=== PATIENT | male | born 1955 | race Caucasian/White ===

== ENCOUNTER 2017-03-29 21:12 | Emergency (ER) | payer BC ==
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
[2017-03-29 22:02] LABS: Hematocrit 38 % (42-52); Hemoglobin 13.4 g/dl (14.0-18.0); Mean Corpuscular HGB Conc 35 g/dl (31-36); Mean Corpuscular Hemoglobin 31 pg (27-31); Mean Corpuscular Volume 90 fL (80-94); Mean Platelet Volume 10 um3 (7.4-10.4); Red Blood Count 4.26 10^6/ul (4.0-5.4); Red Cell Distribution Width 13 % (10.5-15); White Blood Count 10.4 10^3/ul (3.5-10.8)
--- NOTE | 2017-03-29 22:11 | RAD ---
HISTORY: Headache, visual disturbance COMPARISONS: May 03, 2013 TECHNIQUE: Multiple contiguous axial CT scans were obtained of the head without intravenous contrast. FINDINGS: HEMORRHAGE/INFARCT: There is no hemorrhage or acute infarct. MASSES/SHIFT: There is no mass or shift. EXTRA-AXIAL SPACES: There are no extra-axial fluid collections. SULCI AND VENTRICLES: The sulci and ventricles are normal in size and position for the patient's stated age. CEREBRUM: There are no focal parenchymal abnormalities. BRAINSTEM: There are no focal parenchymal abnormalities. CEREBELLUM: There are no focal parenchymal abnormalities. VESSELS: The vessels are grossly normal. PARANASAL SINUSES: The paranasal sinuses are clear. ORBITS: The orbits are unremarkable. BONES AND SOFT TISSUE: No bone or soft tissue abnormalities are noted. OTHER: None IMPRESSION: NO ACUTE INTRACRANIAL PATHOLOGY.
[2017-03-29 22:16] LABS: Albumin 4.5 g/dL (3.2-5.2); BUN/Creatinine Ratio 26.2 (8-20); Calcium 9.8 mg/dL (8.6-10.3); EGFR African American 93.8 (>60); EGFR Non-African American 72.9 (>60); Globulin 2.7 g/dL (2-4); Potassium 3.5 mmol/L (3.5-5.0); Total Bilirubin 0.6 mg/dL (0.2-1.0); Total Protein 7.2 g/dL (6.4-8.9)
[2017-03-29] MEDS ORDERED: Acetaminophen TAB* 325 MG PO ONE (23:57)
[2017-03-30 00:18] VITALS: BP 117/52
== END 2017-03-30 00:19 | disposition home or self-care (01) ==
LOC: ED 21:12
DX: S06.9X9A Unspecified intracranial injury with loss of consciousness of unspecified duration, initial encounter (principal); S93.402A Sprain of unspecified ligament of left ankle, initial encounter; S16.1XXA Strain of muscle, fascia and tendon at neck level, initial encounter; S39.012A Strain of muscle, fascia and tendon of lower back, initial encounter; S80.02XA Contusion of left knee, initial encounter; W01.198A Fall on same level from slipping, tripping and stumbling with subsequent striking against other object, initial encounter; Y93.H9 Activity, other involving exterior property and land maintenance, building and construction; Y92.007 Garden or yard of unspecified non-institutional (private) residence as the place of occurrence of the external cause; M17.12 Unilateral primary osteoarthritis, left knee; M50.30 Other cervical disc degeneration, unspecified cervical region; R11.2 Nausea with vomiting, unspecified; F41.9 Anxiety disorder, unspecified; Z88.5 Allergy status to narcotic agent
CPT/HCPCS: 36415; 70450; 80053; 85025; 85610; 93005; 96374; 96375; 99283; A9270-GY

== ENCOUNTER 2017-12-25 20:01 | Emergency (ER) | payer BC ==
--- OUTSIDE RECORDS SUMMARY | 2017-12-25 20:28 | XMS REPORT ---
:1955 External Reference #:[id number] Author Organization [facility] Address [address] [place] [address] Phone [phone] Care Team Providers Name Role Phone Kanu George MD Care Team Information Collision Estimator Unavailable Kanu George MD Primary Care Physician Unavailable Payers Type Date Identification Numbers Payment Provider Subscriber Commercial Effective: Policy Number: [id number] [facility] Jose Mcelroy 2017 PayID: [id number] [address] [address] [place] [address] Medigap Part B Effective: 2012 Policy Number: BC/BS Of SINDY Mcelroy [id number] Expires: 2017 PayID: [id number] [address] [place] [id number] Problems Date Description Provider Status Onset: 08/20/2010 Gastroesophageal reflux disease Andreina Parr M.D. Active Onset: 08/20/2010 Essential hypertension Andreina Parr M.D. Active Onset: 10/27/2011 Cellulitis and abscess of face Wendy Ayala M.D. Active Onset: 10/27/2011 Arthralgia of the lower leg Wendy Ayala M.D. Active Onset: 11/01/2011 Malaise and fatigue Lorena Baez M.D. Active Onset: 09/01/2012 Type II diabetes mellitus Trish Donahue Active uncontrolled Onset: 05/08/2013 Open wound of face Kanu George M.D. Active Onset: 09/25/2013 Acquired trigger finger Kanu George M.D. Active Onset: 11/19/2013 Hand joint pain Kanu George M.D. Active Onset: 12/26/2013 Palpitations Kanu George M.D. Active Onset: 01/16/2014 Atrial fibrillation Kanu George M.D. Active Onset: 09/23/2014 Disorder of shoulder Kanu George M.D. Active Onset: 09/23/2014 Wrist joint pain Kanu George M.D. Active Onset: 09/23/2014 Benign essential hypertension Kanu George M.D. Active Onset: 02/08/2015 Acute upper respiratory infection Edwin Aldridge M.D. Active Onset: 02/08/2015 Disorder of skin AND/OR Edwin Aldridge M.D. Active subcutaneous tissue Onset: 07/05/2016 Low back pain Kanu George M.D. Active Onset: 06/24/2017 Transient cerebral ischemia Kanu George M.D. Active Family History Date Family Member(s) Problem(s) Comments Father CHF, stroke 1993 , r sided paraplegia Mother 82, d/t sequelae from a fall. MIx several. 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 Cigarette Use Never Smoked Cigarettes ETOH Use Rarely consumes alcohol Smoking Patient has never smoked Daily Caffeine Consumes on average 2 cups of coffee per day Daily Caffeine Consumes on average 2 sodas per day Sun Exposure Minimum amount of sun exposure Seat Belt/Car Seat Always uses a seat belt Allergies, Adverse Reactions, Alerts Date Description Reaction Status Severity Comments 01/29/2002 Amoxicillin active Hives, Joint Pain 11/15/2003 Penicillin active Medications Medication Date Status Form Strength Qnty SIG Indications Ordering Provider Aspirin Ec 12/05 Active Tablets 325mg 1 by mouth every day Trish Baer Simvastatin 11/10 Active Tablets 10mg 30tab take one E78.4 Kanu Kwan /Luis Enrique s tablet by edna George M.D. every day in the evening Lancets Ultra 08/18 Active Misc Thin 30G 1Boxe test 1 E11.65 Lara Thin 30G /2011 s time daily Dante, qd dx: Afnp-C niddm Freestyle 08/18 Active Strips 1box test qd E11.65 Lara Insulinx Blood /2011 NIDDM Dante, Glucose Test Afnp-C Metformin HCL 08/18 Active Tablets 500mg 60tab take 1 E11.65 Kanu Kwan /2011 s tablet by Ariel mouth M.D. twice a day with food Montelukast 07/06 Active Tablets 10mg 30tab Take 1 Kanu Ortiz s Tablet By Breervin, Mouth Once M.D. Daily Omeprazole 08/20 Active Capsules 40mg 30cap take 1 K21.9 Kanu Kwan /2009 s capsule by Ariel, mouth once M.D. daily Ramipril 09/23 Active Capsules 2.5mg 30cap take 1 I10 Kanu Kwan /2007 s capsule by Ariel, mouth once M.D. daily Hydrochlorothiazi 01/14 Active Tablets 25mg 30tab take 1 I10 Kanu flanagan s tablet by Breimabela, mouth once M.D. daily Multivitamins 00 Active Tablets 1 po qd Unknown /0000 Aspirin Adult Low 06/24 Hx Chewtabs 81mg 100un 1 by mouth Kanu Garcia /Artem its every day Michael George.DNikhil 12/05 Oxycodone-Acetami 03/18 Hx Tablets 5-325mg 50tab take 1 -2 Kanu harris /2016 s Q 4Hour Ariel, - prn Pain M.D. 06/24 Doxycycline 03/15 Hx Capsules 100mg 20cap 1 by mouth Alanna Hyclate /2016 s twice a Buffy, - day Afnp-C 03/25 Tramadol HCL 03/15 Hx Tablets 50mg 30tab 1-2 by Mansoor.Tracey Mondragon /2016 s mouth Buffy, - every 6 Afnp-C 06/24 hours needed for pain Tramadol HCL 12/02 Hx Tablets 50mg 30tab 1-2 by Alanna /2015 s mouth Buffy, - every 6 Afnp-C 07/05 hours needed Ibuprofen 07/08 Hx Tablets 200mg 600 mg po Kanu Kwan /2014 qam Michael George M.D. 03/14 Gentamicin 05/17 Hx Solution 0.3% 1Bott 1-2 drops Edwin T. le four times Midura, - a day M.D. 07/08 affected eye until clear Azithromycin 02/08 Hx Tablets 250mg 6tabs 2 by mouth 465.9 Edwin Colin /2014 today and Midura, - 1 by mouth M.D. 05/17 x 4 days Aleve 09/23 Hx Tablets 220mg 1 by mouth Kanu Kwan /2013 twice a Ariel, - day M.D. 07/08 Naprosyn 12/17 Hx Tablets 375mg 30tab 1 po bid Kanu Kwan /2013 s with Ariel - meals M.D. 12/26 Meloxicam 11/28 Hx Tablets 15mg 30tab 1 po qd Kanu Kwan s Michael George M.D. 12/26 Celebrex 11/25 Hx Capsules 200mg 30cap 1 po qd Kanu Kwan s Michael George M.D. 11/28 Physical Therapy 05/18 Hx Physical Edwin Colin therapy Oly, - evaluation M.DNikhil 11/19 and treatment of bilateral hands and wrists. dx:e819.3 Oxycodone/Acetami 05/08 Hx Tablets 5-325mg 70tab 1-2 po q 6 Kanu harris s hours prn Ariel, - dt M.D. 11/19 Doxycycline 10/[address] 100mg 14cap 1 po bid 682.0 Wendy Castellanosate /2011 Part s for 7 , - days, take M.D. 12/08 probiotic such as Align or Culturelle Levaquin 10/04 Hx Tablets 750mg 10tab one po 461.9 Gladys s daily for Maci, - 10 days SET DECORATOR 10/27 Doxycycline 06/[address] 100mg 14cap 1 po bid 682.0 Wendy Castellanosate Part s for 7 days Lucy - M.D. 10/04 Levaquin 03/16 Hx Tablets 750mg 10tab one po Celi s daily for jessica Tamez, - 10 days M.D. 06/19 Levaquin 10/05 Hx Tablets 750mg 14tab 1 po daily 682.0 Kanu Kwan s x 14 days. Ariel, - M.DNikhil 03/16 Ramipril 08/20 Hx Capsules 5mg 30cap 1 po daily 401.9 Andreina Frausto s Keshav - Rama 08/20 Levaquin 07/18 Hx Tablets 750mg 4tabs one po 682.0 daily for Dante, - 4 days Afnp-C 07/22 Levaquin 07/09 Hx Tablets 750mg 10tab 1 qd x 10d 682.0 s Maci, - SET DECORATOR 07/18 Note For Work 12/22 Hx pt was seen in [facility], - this Afnp-C 12/23 office and released for work return 12/18/09 Levaquin 12/15 Hx Tablets 750mg 5tabs 1 po qd x 486 5d [facility], - Afnp-C 12/20 Proventil HFA 12/15 Hx 1unit 2 puffs q 486 s 4hrs prn Buffy, - cough/ sob Afnp-C 12/29 Note No Work 12/15 Hx seen in 486 this [facility], - office, Afnp-C 12/17 advise off work through 12/16/09, will returm 12/17/09 Levaquin 09/26 Hx Tablets 750mg 10tab one po 682.0 s daily for Dante, - 10 days Afnp-C 10/06 Return To Work 08/01 Hx pt february return to jessica [employer], - work 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 07/18 pain and sciatic pain Percocet 07/24 Hx Tablets 5-325mg 120ta 1-2 po q6h bs prn jessica Tamez, - M.DNikhil 07/18 Flexeril 07/24 Hx Tablets 10mg 30tab 1 by mouth Kanu Aniya s three Ariel, - times a M.D. 07/05 day needed back pain Ibuprofen 07/24 Hx Tablets 800mg 90tab 1 po q8 s hours tid jessica Tamez, - with food M.D. 07/18 Out Of Work 07/24 Hx pt to be out of jessica Tamez, - work from M.D. 09/2607/24/09 to 07/31/09 Ramipril 09/23 Hx Caps 2.5mg 30cap Take s Capsule By - Mouth Once 02/12 Daily Work Excuse 03/12 Hx Unable To Kanu Kwan Work For Ariel, - The Next M.D. 01/20 2-3 Will Be Reevaluate d During That Time Medrol Dosepak 02/26 Hx Tablets 4mg 1tabs use as Kanu Kwan /2007 directed Michael George.Cordelia 01/20 Percocet 02/26 Hx Tablets 10-325mg 300ta use 1-2 Kanu Kwan /2007 bs po 4-6qhr Michael George M.D. 07/24 Work Excuse 02/26 Hx unable to Kanu Kwan work for [employer], - at least 2 M.D. 01/20 more weeks Physical Therapy 02/21 Hx Evaluate Gladys And Treat Maci, - Upper SET DECORATOR 01/20 Thoracic /2008 And Cervical Strain Soma 02/20 Hx Tablets 350mg 40tab 1 PO qid 848.9 Gladys s prn Muscle Maci, - Spasm SET DECORATOR 03/27 Soma 02/18 Hx Tablets 250mg 40tab 1 po qid 848.9 Gladys s prn muscle Maci, - spasm SET DECORATOR 02/20 Hydrocodone/Aceta 02/18 Hx Tablets 7.5-325 40tab 2 po bid 848.9 Gladys min s prn for Maci, - pain SET DECORATOR 02/26 Note No Work 02/18 Hx wale was seen by me Maci, - today and SET DECORATOR 01/20 return to work until tuesday, 5\\14\\08 Omeprazole 02/15 Hx CPDR 20mg 30uni take 1 Nikhil ts capsule by Ariel - mouth once M.D. 10/30 Biaxin 11/03 Hx Tablets 500mg 20tab 1 PO bid 461.9 s X10 Days Maci, - SET DECORATOR 02/14 Robitussin ac 11/03 Hx 4Oz 1-2 TSP PO 461.9 Q4H prn Maci, - Cough SET DECORATOR 02/14 Physical Therapy 01/30 Hx treatment Kanu Kwan /2006 and Ariel - jessie M.Cordelia 11/03 low back pain Levaquin 01/18 Hx Tablets 500mg 10tab 1 PO qd Kanu Kwan /2006 s Michael George M.D. 07/11 Keflex 07/06 Hx Tablets 500mg 21tab 1 PO tid Gerald JNikhil /2005 s For 7D Michael Keyes M.D. 07/13 Biaxin 07/30 Hx Tablets 500mg 20tab 1 PO bid X s 10 Days Maci, - ANNE 09/22 Anusol HC 03/29 Hx Cream 2.5% 30gm apply bid Kanu Kwan Michael George M.D. 07/30 Coumadin 01/18 Hx 5mg [facility] 07/30 [facility] [place] Biaxin 11/18 Hx 500mg 20uni 1 po bid Kanu Kwan ts x10 days Michael George M.D. 05/18 Altace 10/28 Hx Capsules 2.5mg 30cap 1 po qd Kanu Kwan Michael Leon M.D. 01/20 Hydrochlorothiazi 10/07 Hx 25mg 30uni 1 po qd Kanu flanagan Michael Lloyd M.D. 02/14 Hydrochlorothiazi 09/16 Hx 12.5 30uni 1 po q.d Kanu flanagan Michael Lloyd M.D. 10/07 Prilosec 09/16 Hx 20mg 30uni 1 po qd Kanu JNikhil Michael Lloyd M.D. 02/26 Levaquin 07/20 Hx 500mg 10uni 1 qd librado Lux - SET DECORATOR 09/03 Nexium 07/20 Hx 40mg 30uni 1 qd Kanu JNikhil Michael Lloyd M.D. 10/07 Levaquin 06/05 Hx 500mg 14uni 1 qd librado Lux - SET DECORATOR 07/20 Biaxin 05/27 Hx 250mg 20uni 1 po bid librado Lux - SET DECORATOR 06/05 Humibid LA 05/27 Hx 60uni 1 bid Kanu Kwan Michael Lloyd M.D. 10/28 Singulair 05/27 Hx Tablets 10mg 30tab Take 1 Kanu JNikhil s Tablet By Ariel, - Mouth Once M.DNikhil 08/09 Biaxin 11/27 Hx Tabs 500mg 20tab 1 po bid Edwin T. Michael Knight M.D. 05/27 Aciphex 11/15 Hx 20mg 30uni 1 po qd librado Lux - SET DECORATOR 07/20 Levaquin 11/15 Hx 500mg 14uni 1 qd x 14 librado Howell - Afnp-C 11/27 Levaquin 08/03 Hx 500mg 7unit 1 qd jann Lux - SET DECORATOR 11/15 Levaquin 07/22 Hx 750mg 14uni 1 qd [facility] 08/03 [facility] [place] Levaquin 06/25 Hx 500mg 3unit 1 qd Alanna jann Baer - Afnp-C 07/02 Aciphex 11/21 Hx 20mg 30uni 1 PO qd Kanu JNikhil Michael Lloyd M.D. 11/15 Acitlex 11/02 Hx 30uni 1 PO qd Kanu JNikhil Michael Lloyd M.D. 11/21 Medrol Dosepack 01/29 Hx 4mg 1unit as Parveen F. s Directed Temo - Rama 02/05 Sally 01/29 Hx 180mg 30uni 1 PO qd . librado George - Demi.DNikhil 05/27 Humabid LA 01/15 Hx 600mg 30uni 1-2 Q 12 Edwin T. ts HR prn Oly, - M.D. 01/29 Amoxicillin 01/15 Hx Tablets 500mg 30tab 1 Tablet 3 Edwin T. s Times Oly, - Daily M.D. 01/29 Vioxx 09/21 Hx 50mg 1 PO qd [facility] 01/15 Of Hydrocodone/Apap 09/21 Hx Tabs 5/500 1-2 PO [id number] Medicine - prn [facility] 01/15 Of Amoxicillin 09/21 Hx Tablets 500mg 30tab 1 Tablet 3 Avila S. s Faby Peralta M.D. - Daily 10/01 Humabid LA 09/21 Hx 600mg 15uni 1-2 Q 12 Avila S. ts HR prn Rama Peralta - 10/11 Physical Therapy 07/26 Hx Treatment . And Oly, - Evaluation M.D. 01/15 Shoulder Pain Medrol 07/26 Hx Dose Pack 1unit as Edwin T. s Directed Oly, - M.D. 01/15 Motrin 07/26 Hx 800mg 90uni 1 PO tid Edwin T. ts prn Oly, - M.D. 01/15 Compazine 06/12 Hx 5mg 30uni 1-2 Tabs Q Edwin T. ts 6-8 HRS Oly, - For M.D. 01/15 Nausea/Vom iting Fiorinal 06/12 Hx 30uni 1-2 Q 4 Edwin T. W/Codeine ts HRS prn Oly, - Headache M.D. 01/15 Tylenol #3 06/09 Hx #3 40uni 1 PO Q4H Mahad Cameron ts prn Theron - Rama 07/09 Pain Soma 06/09 Hx 350mg 30uni 1 PO qid Mahad Cameron ts prn Theron - RakeshDNikhil 06/19 Naproxen 04/24 Hx 375mg Tab 30uni 1 PO tid Mahad Cameron ts prn Neck Blclinton, - Pain M.D. 05/24 1 Physical Therapy 01/24 Hx Treatment Kanu J. And Ariel - Evaluation Demi.DNikhil 03/03 Of Neck And Shoulder Pain Tylenol #3 01/24 Hx #3 20uni 1 PO Q4H Lara ts prn Pain Dante, - Afnp-C 01/24 Soma 01/24 Hx 350mg 30uni 1 PO qid Lara ts prn Dante, - Afnp-C 03/03 Soma CPD 01/17 Hx 300 30uni 1 qid Kanu J. ts Michael George M.D. 03/03 Tylenol #3 01/17 Hx #3 20uni 1 PO Q4H ts prn Pain Dante, - Afnp-C 03/03 Keflex 07/02 Hx 5Oomg 30uni 1 PO tid Edwin Colin ts Michael Aldridge M.D. 03/03 Amoxicillin 12/06 Hx 250mg Tab 30uni 1 PO tid Mahad Cameron Michael Rice M.D. 12/16 Ibuprofen Hx Tablets 600mg 60tab 1 PO tid Unknown /0000 s With Food - prn For 01/20 Pain /2008 Ibuprofen Hx Capsules 200mg take one Unknown /0000 capsule - with 11/03 breakfast and dinner for 5 days Flexeril 00 Hx Unknown /0000 - 08/18 Cyclobenzaprine Hx Tablets 10mg 20tab take 1 Unknown HCL /0000 s tablet by - mouth tid 11/03 evening if needed for muscle spasm Aleve Hx Capsules 220mg Unknown /0000 - 05/29 /2017 Immunizations CPT Code Status Date Vaccine Lot # [id number] Given 06/24/2017 Influenza Vac, Quadrivalent, Slit Virus, Im [id number] Given 07/08/2015 Influenza Vac, Quadrivalent, Slit Virus, Im [id number] Given 09/23/2014 Influenza Vac, Quadrivalent, Slit Virus, Im [id number] Given 11/19/2013 Preservative free flu 3 yrs+ and older [id number] Given 11/03/2012 DO Not Use Split Influenza Virus Vaccine [id number] Given 10/30/2010 Tdap Tetanus, W Pertussis [id number] Vital Signs Date Vital Result Comment 12/05/2017 BP Systolic 122 mmHg BP Diastolic 76 mmHg Heart Rate 72 /min Body Temperature 97.0 F Respiratory Rate 16 /min Height 67 inches 5'7" Weight 198.00 lb BMI (Body Mass Index) 31.0 kg/m2 Right Visual Acuity Distance 20/25 No Lenses Left Visual Acuity Distance 20/25 No Lenses 06/24/2017 BP Systolic 122 mmHg BP Diastolic 80 mmHg Heart Rate 76 /min Body Temperature 97.7 F Respiratory Rate 16 /min Height 67 inches 5'7" Weight 196.25 lb BMI (Body Mass Index) 30.7 kg/m2 04/04/2017 BP Systolic 120 mmHg BP Diastolic 66 mmHg Heart Rate 68 /min Body Temperature 98.0 F Respiratory Rate 18 /min Height 67 inches 5'7" Weight 196.00 lb BMI (Body Mass Index) 30.7 kg/m2 03/18/2017 BP Systolic 120 mmHg BP Diastolic 68 mmHg Heart Rate 68 /min Body Temperature 98.1 F Respiratory Rate 18 /min Height 67 inches 5'7" Weight 197.12 lb BMI (Body Mass Index) 30.9 kg/m2 03/15/2017 BP Systolic 120 mmHg BP Diastolic 66 mmHg Heart Rate 84 /min Body Temperature 97.5 F Height 67 inches 5'7" Weight 199.25 lb pt stated BMI (Body Mass Index) 31.2 kg/m2 12/21/2016 BP Systolic 124 mmHg BP Diastolic 78 mmHg Heart Rate 68 /min Body Temperature 97.7 F Respiratory Rate 16 /min Height 67 inches 5'7" Weight 224.12 lb BMI (Body Mass Index) 35.1 kg/m2 Right Visual Acuity Distance 20/20 Left Visual Acuity Distance 20/25 07/05/2016 BP Systolic 122 mmHg BP Diastolic 80 mmHg Heart Rate 62 /min Body Temperature 98.1 F Respiratory Rate 20 /min Height 66.5 inches 5'6.50" Weight 229.00 lb BMI (Body Mass Index) 36.4 kg/m2 04/24/2016 BP Systolic 154 mmHg BP Diastolic 90 mmHg Heart Rate 80 /min Body Temperature 97.9 F Respiratory Rate 18 /min Height 66.5 inches 5'6.50" Weight 239.00 lb BMI (Body Mass Index) 38.0 kg/m2 12/22/2015 BP Systolic 120 mmHg BP Diastolic 80 mmHg Heart Rate 68 /min Body Temperature 98.1 F Respiratory Rate 18 /min Height 66.5 inches 5'6.50" Weight 233.00 lb BMI (Body Mass Index) 37.0 kg/m2 Right Visual Acuity Distance 20/20 Left Visual Acuity Distance 20/25 12/02/2015 BP Systolic 162 mmHg BP Diastolic 100 mmHg Heart Rate 68 /min Body Temperature 98.7 F Height 66.5 inches 5'6.50" 07/08/2015 BP Systolic 130 mmHg BP Diastolic 74 mmHg Heart Rate 64 /min Body Temperature 98.6 F Respiratory Rate 18 /min Height 66.5 inches 5'6.50" Weight 233.00 lb BMI (Body Mass Index) 37.0 kg/m2 02/08/2015 BP Systolic 160 mmHg BP Diastolic 88 mmHg Heart Rate 78 /min Body Temperature 98.6 F Respiratory Rate 16 /min Height 67 inches 5'7" measured 01/02/15 Weight 232.00 lb stated 02/08/15 BMI (Body Mass Index) 36.3 kg/m2 01/02/2015 BP Systolic 130 mmHg BP Diastolic 80 mmHg Heart Rate 84 /min Body Temperature 98.0 F Respiratory Rate 16 /min Height 67 inches 5'7" measured 01/02/15 Weight 239.38 lb BMI (Body Mass Index) 37.5 kg/m2 Right Visual Acuity Distance 20/20 Left Visual Acuity Distance 20/25 09/23/2014 BP Systolic 130 mmHg BP Diastolic 74 mmHg Heart Rate 70 /min Body Temperature 98.2 F Respiratory Rate 16 /min Height 66.5 inches 5'6.50" Weight 228.00 lb BMI (Body Mass Index) 36.2 kg/m2 01/16/2014 BP Systolic 110 mmHg BP Diastolic 70 mmHg Heart Rate 05089 /min Body Temperature 98.1 F Height 66.5 inches 5'6.50" Weight 225.00 lb BMI (Body Mass Index) 35.8 kg/m2 01/01/2014 BP Systolic 124 mmHg BP Diastolic 80 mmHg Heart Rate 72 /min Body Temperature 97.2 F Respiratory Rate 16 /min Height 66.5 inches 5'6.50" Weight 228.00 lb BMI (Body Mass Index) 36.2 kg/m2 Right Visual Acuity Distance 20/20 Left Visual Acuity Distance 20/20 12/26/2013 BP Systolic 130 mmHg BP Diastolic 80 mmHg Heart Rate 74 /min Body Temperature 98.0 F Respiratory Rate 16 /min Height 66.5 inches 5'6.50" Weight 232.00 lb BMI (Body Mass Index) 36.9 kg/m2 11/19/2013 BP Systolic 124 mmHg BP Diastolic 70 mmHg Heart Rate 66 /min Body Temperature 97.8 F Respiratory Rate 18 /min Height 66.5 inches 5'6.50" measured Weight 224.00 lb BMI (Body Mass Index) 35.6 kg/m2 09/25/2013 BP Systolic 138 mmHg BP Diastolic 90 mmHg Heart Rate 78 /min Body Temperature 98.0 F Respiratory Rate 18 /min Height 66.5 inches 5'6.50" measured Weight 220.00 lb BMI (Body Mass Index) 35.0 kg/m2 05/11/2013 BP Systolic 140 mmHg BP Diastolic 90 mmHg Heart Rate 78 /min Body Temperature 98.7 F Respiratory Rate 16 /min O2 % BldC Oximetry 98 % Height 66.5 inches 5'6.50" measured Weight 213.00 lb BMI (Body Mass Index) 33.9 kg/m2 05/08/2013 BP Systolic 132 mmHg BP Diastolic 80 mmHg Heart Rate 78 /min Body Temperature 97.9 F Respiratory Rate 18 /min Height 66.5 inches 5'6.50" measured Weight 217.00 lb BMI (Body Mass Index) 34.5 kg/m2 02/06/2013 BP Systolic 136 mmHg BP Diastolic 80 mmHg Heart Rate 80 /min Body Temperature 97.9 F Height 66.5 inches 5'6.50" measured Weight 220.00 lb BMI (Body Mass Index) 35.0 kg/m2 12/25/2012 BP Systolic 146 mmHg BP Diastolic 88 mmHg BP Systolic Recheck 140 mmHg BP Diastolic Recheck 84 mmHg Heart Rate 78 /min Body Temperature 99.0 F Respiratory Rate 18 /min Height 66.5 inches 5'6.50" measured Weight 230.25 lb BMI (Body Mass Index) 36.6 kg/m2 Right Visual Acuity Distance 20/20 Left Visual Acuity Distance 20/30 11/03/2012 BP Systolic 130 mmHg BP Diastolic 84 mmHg Heart Rate 80 /min Body Temperature 97.6 F Height 67.5 inches 5'7.50" Weight 224.00 lb BMI (Body Mass Index) 34.6 kg/m2 09/01/2012 BP Systolic 124 mmHg BP Diastolic 70 mmHg Heart Rate 80 /min Height 67.5 inches 5'7.50" Weight 246.00 lb BMI (Body Mass Index) 38.0 kg/m2 08/18/2012 BP Systolic 136 mmHg BP Diastolic 78 mmHg Heart Rate 122 /min Body Temperature 98.1 F Height 67.5 inches 5'7.50" Weight 246.00 lb BMI (Body Mass Index) 38.0 kg/m2 08/09/2012 BP Systolic 132 mmHg BP Diastolic 80 mmHg Heart Rate 64 /min Body Temperature 97.8 F Respiratory Rate 16 /min Height 67.5 inches 5'7.50" Weight 243.00 lb BMI (Body Mass Index) 37.5 kg/m2 12/08/2011 BP Systolic 130 mmHg BP Diastolic 80 mmHg Heart Rate 76 /min Body Temperature 98.9 F Respiratory Rate 14 /min Height 67.5 inches 5'7.50" Weight 244.00 lb BMI (Body Mass Index) 37.6 kg/m2 Right Visual Acuity Distance 20/20 Left Visual Acuity Distance 20/20 11/01/2011 BP Systolic 130 mmHg BP Diastolic 84 mmHg Heart Rate 84 /min Body Temperature 98.1 F Height 67.5 inches 5'7.50" Weight 249.00 lb BMI (Body Mass Index) 38.4 kg/m2 10/27/2011 BP Systolic 134 mmHg BP Diastolic 76 mmHg Heart Rate 102 /min Body Temperature 98.4 F Height 67.5 inches 5'7.50" Weight 246.00 lb BMI (Body Mass Index) 38.0 kg/m2 10/04/2011 BP Systolic 140 mmHg BP Diastolic 74 mmHg Heart Rate 80 /min Body Temperature 98.4 F Height 67.5 inches 5'7.50" Weight 245.00 lb BMI (Body Mass Index) 37.8 kg/m2 06/19/2011 BP Systolic 116 mmHg BP Diastolic 68 mmHg Heart Rate 76 /min Body Temperature 98.8 F Height 67.5 inches 5'7.50" Weight 256.00 lb BMI (Body Mass Index) 39.5 kg/m2 03/16/2011 BP Systolic 130 mmHg BP Diastolic 80 mmHg Heart Rate 76 /min Body Temperature 98.8 F Height 67.5 inches 5'7.50" Weight 246.00 lb BMI (Body Mass Index) 38.0 kg/m2 10/30/2010 BP Systolic 120 mmHg BP Diastolic 70 mmHg Heart Rate 72 /min Height 67.5 inches 5'7.50" Weight 246.00 lb BMI (Body Mass Index) 38.0 kg/m2 10/05/2010 BP Systolic 120 mmHg BP Diastolic 70 mmHg Heart Rate 60 /min Body Temperature 99.0 F Height 67.5 inches 5'7.50" Weight 248.00 lb BMI (Body Mass Index) 38.3 kg/m2 08/20/2010 BP Systolic 140 mmHg BP Diastolic 82 mmHg Heart Rate 84 /min Height 67.5 inches 5'7.50" Weight 250.00 lb BMI (Body Mass Index) 38.6 kg/m2 07/24/2010 BP Systolic 128 mmHg BP Diastolic 76 mmHg Heart Rate 80 /min Body Temperature 98.4 F Respiratory Rate 14 /min Height 67.5 inches 5'7.50" Weight 245.00 lb BMI (Body Mass Index) 37.8 kg/m2 07/18/2010 BP Systolic 114 mmHg BP Diastolic 68 mmHg Heart Rate 96 /min Body Temperature 97.5 F Respiratory Rate 24 /min Height 67.5 inches 5'7.50" Weight 245.00 lb BMI (Body Mass Index) 37.8 kg/m2 07/09/2010 BP Systolic 120 mmHg BP Diastolic 68 mmHg Heart Rate 88 /min Body Temperature 97.9 F Height 67.5 inches 5'7.50" Weight 245.00 lb BMI (Body Mass Index) 37.8 kg/m2 12/15/2009 BP Systolic 138 mmHg BP Diastolic 70 mmHg Heart Rate 94 /min Body Temperature 96.2 F Weight 238.00 lb 10/01/2009 BP Systolic 120 mmHg BP Diastolic 70 mmHg Heart Rate 60 /min Body Temperature 98.2 F Weight 233.00 lb 09/26/2009 BP Systolic 102 mmHg BP Diastolic 70 mmHg Heart Rate 80 /min Body Temperature 98.2 F Height 67.5 inches 5'7.50" 08/01/2009 BP Systolic 120 mmHg BP Diastolic 70 mmHg Heart Rate 80 /min Body Temperature 98.0 F Height 67.5 inches 5'7.50" Weight 232.00 lb BMI (Body Mass Index) 35.8 kg/m2 07/24/2009 BP Systolic 146 mmHg BP Diastolic 80 mmHg Heart Rate 72 /min Body Temperature 97.6 F Height 67.5 inches 5'7.50" Weight 230.00 lb BMI (Body Mass Index) 35.5 kg/m2 01/20/2009 BP Systolic 122 mmHg BP Diastolic 74 mmHg Heart Rate 80 /min Height 67.5 inches 5'7.50" Weight 232.00 lb BMI (Body Mass Index) 35.8 kg/m2 03/27/2008 BP Systolic 120 mmHg BP Diastolic 68 mmHg Heart Rate 80 /min Height 67.5 inches 5'7.50" Weight 248.00 lb BMI (Body Mass Index) 38.3 kg/m2 03/12/2008 BP Systolic 118 mmHg BP Diastolic 70 mmHg Heart Rate 88 /min Height 67.5 inches 5'7.50" Weight 257.00 lb BMI (Body Mass Index) 39.7 kg/m2 02/27/2008 BP Systolic 108 mmHg BP Diastolic 70 mmHg Heart Rate 80 /min Height 67.5 inches 5'7.50" Weight 250.00 lb BMI (Body Mass Index) 38.6 kg/m2 02/19/2008 BP Systolic 110 mmHg BP Diastolic 80 mmHg Heart Rate 80 /min Body Temperature 98.8 F Height 67.5 inches 5'7.50" Weight 251.00 lb BMI (Body Mass Index) 38.7 kg/m2 11/03/2007 BP Systolic 140 mmHg BP Diastolic 88 mmHg Heart Rate 60 /min Body Temperature 97.6 F O2 % BldC Oximetry 97 % Height 67.5 inches 5'7.50" Weight 239.00 lb BMI (Body Mass Index) 36.9 kg/m2 07/11/2007 BP Systolic 144 mmHg BP Diastolic 80 mmHg Heart Rate 80 /min Body Temperature 97.9 F Height 67.5 inches 5'7.50" Weight 241.00 lb BMI (Body Mass Index) 37.2 kg/m2 01/18/2007 BP Systolic 132 mmHg BP Diastolic 76 mmHg Heart Rate 72 /min Height 67.5 inches 5'7.50" Weight 244.00 lb BMI (Body Mass Index) 37.6 kg/m2 07/06/2006 BP Systolic 126 mmHg BP Diastolic 80 mmHg Heart Rate 64 /min Body Temperature 97.9 F Height 67.5 inches 5'7.50" 10/29/2005 BP Systolic 124 mmHg BP Diastolic 80 mmHg Heart Rate 76 /min Height 67.5 inches 5'7.50" Weight 232.00 lb BMI (Body Mass Index) 35.8 kg/m2 09/22/2005 BP Systolic 122 mmHg BP Diastolic 80 mmHg Heart Rate 72 /min Height 67.5 inches 5'7.50" Weight 236.00 lb BMI (Body Mass Index) 36.4 kg/m2 07/30/2005 BP Systolic 122 mmHg BP Diastolic 76 mmHg Body Temperature 99.2 F Height 67.5 inches 5'7.50" Weight 228.00 lb BMI (Body Mass Index) 35.2 kg/m2 03/29/2005 BP Systolic 120 mmHg BP Diastolic 78 mmHg Heart Rate 80 /min Height 67.5 inches 5'7.50" Weight 225.00 lb BMI (Body Mass Index) 34.7 kg/m2 01/18/2005 BP Systolic 130 mmHg BP Diastolic 70 mmHg Heart Rate 72 /min Height 67.5 inches 5'7.50" Weight 224.00 lb BMI (Body Mass Index) 34.6 kg/m2 11/18/2004 BP Systolic 110 mmHg BP Diastolic 70 mmHg Heart Rate 74 /min Height 67.5 inches 5'7.50" Weight 225.00 lb BMI (Body Mass Index) 34.7 kg/m2 10/28/2004 BP Systolic 130 mmHg BP Diastolic 92 mmHg Heart Rate 104 /min Height 67.5 inches 5'7.50" Weight 227.00 lb BMI (Body Mass Index) 35.0 kg/m2 10/07/2004 BP Systolic 150 mmHg BP Diastolic 90 mmHg Heart Rate 88 /min Height 67.5 inches 5'7.50" Weight 223.00 lb BMI (Body Mass Index) 34.4 kg/m2 09/16/2004 BP Systolic 130 mmHg BP Diastolic 70 mmHg Heart Rate 84 /min Height 67.5 inches 5'7.50" Weight 224.00 lb BMI (Body Mass Index) 34.6 kg/m2 07/20/2004 BP Systolic 140 mmHg BP Diastolic 86 mmHg Heart Rate 80 /min Body Temperature 98.6 F Height 67.5 inches 5'7.50" Weight 220.00 lb BMI (Body Mass Index) 33.9 kg/m2 05/27/2004 BP Systolic 130 mmHg BP Diastolic 90 mmHg Heart Rate 80 /min Height 67.5 inches 5'7.50" Weight 226.00 lb BMI (Body Mass Index) 34.9 kg/m2 11/27/2003 BP Systolic 130 mmHg BP Diastolic 76 mmHg Heart Rate 88 /min Body Temperature 96.8 F Height 67.5 inches 5'7.50" Weight 223.00 lb BMI (Body Mass Index) 34.4 kg/m2 11/18/2003 BP Systolic 138 mmHg BP Diastolic 94 mmHg Heart Rate 80 /min Body Temperature 96.5 F Height 67.5 inches 5'7.50" Weight 222.00 lb BMI (Body Mass Index) 34.3 kg/m2 11/15/2003 BP Systolic 154 mmHg BP Diastolic 88 mmHg Heart Rate 74 /min Body Temperature 98.5 F Height 67.5 inches 5'7.50" Weight 218.00 lb BMI (Body Mass Index) 33.6 kg/m2 07/22/2003 BP Systolic 144 mmHg BP Diastolic 80 mmHg Heart Rate 72 /min Body Temperature 97.9 F Height 67.5 inches 5'7.50" Weight 215.00 lb BMI (Body Mass Index) 33.2 kg/m2 06/25/2003 BP Systolic 130 mmHg BP Diastolic 90 mmHg Body Temperature 97.8 F Height 67.5 inches 5'7.50" Weight 214.00 lb BMI (Body Mass Index) 33.0 kg/m2 04/15/2003 BP Systolic 136 mmHg BP Diastolic 92 mmHg Heart Rate 76 /min Body Temperature 96.0 F Height 67.5 inches 5'7.50" Weight 224.00 lb BMI (Body Mass Index) 34.6 kg/m2 11/02/2002 BP Systolic 128 mmHg BP Diastolic 70 mmHg Heart Rate 72 /min Height 67.5 inches 5'7.50" Weight 218.00 lb BMI (Body Mass Index) 34.1 kg/m2 08/06/2002 BP Systolic 140 mmHg BP Diastolic 90 mmHg Heart Rate 80 /min Height 67.5 inches 5'7.50" Weight 219.00 lb BMI (Body Mass Index) 34.3 kg/m2 02/09/2002 BP Systolic 112 mmHg BP Diastolic 60 mmHg Body Temperature 96.9 F Height 67.5 inches 5'7.50" Weight 216.00 lb BMI (Body Mass Index) 33.8 kg/m2 01/29/2002 BP Systolic 122 mmHg BP Diastolic 76 mmHg Height 67.5 inches 5'7.50" Weight 220.00 lb BMI (Body Mass Index) 34.5 kg/m2 01/15/2002 BP Systolic 132 mmHg BP Diastolic 70 mmHg Body Temperature 97.5 F Height 67.5 inches 5'7.50" Weight 216.00 lb BMI (Body Mass Index) 33.8 kg/m2 11/07/2001 BP Systolic 122 mmHg BP Diastolic 80 mmHg Height 67.5 inches 5'7.50" Weight 218.00 lb BMI (Body Mass Index) 34.1 kg/m2 09/21/2001 BP Systolic 122 mmHg BP Diastolic 88 mmHg Heart Rate 100 /min Body Temperature 96.6 F Respiratory Rate 22 /min Height 67.5 inches 5'7.50" Weight 218.00 lb BMI (Body Mass Index) 34.1 kg/m2 07/26/2001 BP Systolic 100 mmHg LG Cuff BP Diastolic 70 mmHg LG Cuff Heart Rate 72 /min Height 67.5 inches 5'7.50" Weight 213.50 lb BMI (Body Mass Index) 33.5 kg/m2 06/12/2001 BP Systolic 120 mmHg BP Diastolic 70 mmHg Heart Rate 80 /min Body Temperature 96.4 F Weight 213.00 lb 06/09/2001 BP Systolic 122 mmHg BP Diastolic 74 mmHg Weight 218.00 lb 04/24/2001 BP Systolic 140 mmHg BP Diastolic 84 mmHg Heart Rate 80 /min Weight 209.00 lb 03/03/2000 BP Systolic 130 mmHg BP Diastolic 90 mmHg Respiratory Rate 96.7 /min Weight 217.00 lb 01/17/1999 BP Systolic 122 mmHg LA LG Cuff BP Diastolic 64 mmHg LA LG Cuff Weight 209.00 lb 07/02/1998 BP Systolic 136 mmHg BP Diastolic 90 mmHg Body Temperature 98.4 F Weight 211.00 lb 12/06/1997 BP Systolic 128 mmHg L Arm LG Cuff BP Diastolic 86 mmHg L Arm LG Cuff Height 68.00 inches 5'8" Weight 210.00 lb 08/02/1997 BP Systolic 118 mmHg BP Diastolic 80 mmHg Height 68.00 inches 5'8" Weight 208.50 lb 208 lbs. 8 ozs. Results Test Date Test Result H/L Range Note Ua - Non Micro (Fma) 12/05/2017 Appearance clear Color yellow Glucose, Urine (Fma/CMC/CTX) neg Bilirubin neg Ketones neg SP Grav 1.010 Blood neg PH 5.5 Protein neg Urobil 0.2 Nitrite neg Leukocytes ([facility]ma/CMC/[facility]) neg Laboratory test finding 12/05/2017 Hemoglobin A1c (Fma) 5.2 % 4.1-5.7 Glucose, Serum (Fma/CMC/CTX) 111 mg/dL High 70-105 Laboratory test finding 06/24/2017 Hemoglobin A1c (Fma) 5.2 % 4.1-5.7 Ua - Non Micro (Fma) 06/24/2017 Appearance clear Color yellow Glucose, Urine ([facility]ma/CMC/CTX) neg Bilirubin neg Ketones neg SP Grav 1.015 Blood neg PH 5.5 Protein neg Urobil 0.2 Nitrite neg Leukocytes ([facility]ma/CMC/[facility]) neg Lyme AB/Western Blot Reflex 03/18/2017 Lyme IgG/IgM Ab <0.91 ISR 0.00- 0.90 1, 2 Lyme Disease Ab, Quant, IgM <0.80 index 0.00-0.79 1, 3 Laboratory test finding 03/18/2017 C-Reactive Protein, Quant 7.0 mg/L High 0.0-4.9 1 Laboratory test finding 03/18/2017 Sedimentation Rate 28mm Lipid Profile 03/15/2017 Cholesterol 159 mg/dL 120-200 Triglycerides 76 mg/dL 30-200 HDL Cholesterol 45 mg/dL 30-70 LDL (Calculated) 99 CALC 0-129 VLDL Cholesterol 15 mg/dL 0-50 HDL Risk Factor 3.5 CALC 0.0-4.4 Laboratory test finding 03/15/2017 HCV Antibody <0.1 s/coratio 0.0- 0.9 4, 5 Laboratory test finding 03/15/2017 Glucose, Serum 126 mg/dL High 70-105 6 CBC Electronic (a) 03/15/2017 WBC 9.3 3.6-9.6 RBC 4.95 3.90-5.70 Hemoglobin (Fma/CMC/CTX) 15.4 g/dL 12.1 - 17.2 Hematocrit (Fma/CMC/CTX) 45.9 % 36.1 - 50.3 Platelets 268 10^3/ul 150-400 Lymph% 16.5 % Low 17.0-48.0 Mixed% 4.0 Neutrophils % 79.5 Mean Corpuscular Vol 93 82.2-97.4 Mean Corpuscular Hemoglobin 31.1 27.6-33.3 Mean Corpuscular Hemo Concen 33.6 32.0-36.0 RDW 13.9 High 11.6-13.7 Mean Platelet Volume 9.0 5.5-11.0 HIV 1/O/2 Ag/AB 03/15/2017 HIV Screen 4th Non Reactive Non Reactive 4 Prelim W/Pratt RFX Generation wRfx Sup Laboratory test 03/15/2017 Hemoglobin A1c (Fma) 5.2 % 4.1-5.7 finding Laboratory test 12/21/2016 Hemoglobin A1c (Fma) 6.9 % High 4.1-5.7 finding Microalb, Random (Fma/CMC/CTX) 5.0 mg/L 0.5-37 Ua - Non Micro (Fma) 12/21/2016 Appearance clear Color yellow Glucose, Urine (Fma/CMC/CTX) neg Bilirubin neg Ketones neg SP Grav <=1.005 Blood neg PH 5.5 Protein neg Urobil 0.2 Nitrite neg Leukocytes ([facility]ma/CMC/[facility]) neg Comprehensive Metabolic Prof 12/21/2016 Sodium 142 mEq/L 134-149 Potassium 4.3 mEq/L 3.6-5.5 Chloride 107 mEq/L 94-112 Carbon Dioxide 25 mEq/L 21-32 Glucose 167 mg/dL High 70-105 7 BUN 23 mg/dL 6-26 Creatinine 0.9 mg/dL 0.6-1.4 BUN/Creat Ratio 25.6 CALC 8.0-36.0 Calcium 9.9 mg/dL 8.6-10.2 Total Protein 8.1 g/dL 6.4-8.3 Albumin 5.2 g/dL 3.8-5.5 Globulin 2.9 g/dL 2.0-4.8 A/G Ratio 1.8 CALC 0.6-2.3 Alk. Phosphatase 75 U/L 22-95 Alt (SGPT) 46 U/L High 7-35 Ast (Sgot) 28 U/L 5-34 Total Bilirubin 0.6 mg/dL 0.2-1.3 GFR Non- >60 ml/min/1.73m^ >=60 GFR >60 ml/min/1.73m^ >=60 Complete Blood Count 12/21/2016 WBC 7.4 x10^3/UL 3.6-9.6 RBC 4.63 x10^6/UL 3.90-5.70 HGB 14.4 g/dL 12.1-17.2 HCT 42 % 36-50 MCV 91.0 fL 82.2-97.4 MCH 31.0 pg 27.6-33.3 MCHC 33.9 g/dL 33.0-35.5 RDW 13.2 % 11.6-13.7 PLT 225 x10^3/UL 150-400 MPV 7.8 fL 7.4-10.4 Gran # 5.0 x10^3/UL 1.5-7.2 Lymph# 2.0 x10^3/UL 0.7-4.9 [place]# 0.4 x10^3/UL 0.1-0.9 Gran % 66.7 % 42.2-75.2 Lymph % 27.8 % 20.5-51.1 [place]% 5.5 % 4-10 Lipid Profile 12/21/2016 Cholesterol 174 mg/dL 120-200 Triglycerides 190 mg/dL 30-200 HDL Cholesterol 45 mg/dL 30-70 LDL (Calculated) 91 CALC 0-129 VLDL Cholesterol 38 mg/dL 0-50 HDL Risk Factor 3.9 CALC 0.0-4.4 Ua - Non Micro (a) 12/22/2015 Appearance CLEAR Color YELLOW Glucose, Urine (a/[facility] [place]/CTX) NEG Bilirubin NEG Ketones NEG SP Grav 1.015 Blood NEG PH 5.5 Protein NEG Urobil 0.2 Nitrite NEG Leukocytes (a/[facility] [place]/[facility]) NEG Laboratory test finding 07/08/2015 Hemoglobin A1c 6.3 % % High 4.1-5.7 (a/[facility] [place],CX) Comprehensive Metabolic 01/09/2015 Sodium 136 mEq/L 134-149 Prof Potassium 3.9 mEq/L 3.6-5.5 Chloride 98 mEq/L 94-112 Carbon Dioxide 26 mEq/L 21-32 Glucose 177 mg/dL High 70-105 8 BUN 16 mg/dL 6-26 Creatinine 0.9 mg/dL 0.6-1.4 BUN/Creat Ratio 17.8 CALC 8.0-36.0 Calcium 9.2 mg/dL 8.6-10.2 Total Protein 6.8 g/dL 6.4-8.3 Albumin 4.6 g/dL 3.8-5.5 Globulin 2.2 g/dL 2.0-4.8 A/G Ratio 2.1 CALC 0.6-2.3 Alk. Phosphatase 70 U/L 22-95 Alt (SGPT) 37 U/L High 7-35 9 Ast (Sgot) 31 U/L 5-34 Total Bilirubin 0.7 mg/dL 0.2-1.3 Lipid Profile 01/09/2015 Cholesterol 161 mg/dL 120-200 Triglycerides 127 mg/dL 30-200 HDL Cholesterol 42 mg/dL 30-70 LDL (Calculated) 94 CALC 0-129 VLDL Cholesterol 25 mg/dL 0-50 HDL Risk Factor 3.8 CALC 0.0-4.4 Laboratory test finding 01/09/2015 TSH 1.99 mIU/L 0.50-6.00 PSA 0.4 ng/mL 0.0-4.0 Complete Blood Count 01/09/2015 WBC 6.9 x10^3/UL 3.6-9.6 RBC 4.66 x10^6/UL 3.90-5.70 HGB 15.4 g/dL 12.1-17.2 HCT 44 % 36-50 MCV 93.0 fL 82.2-97.4 MCH 33.1 pg 27.6-33.3 MCHC 35.4 g/dL 33.0-35.5 RDW 12.3 % 11.6-13.7 PLT 190 x10^3/UL 150-400 MPV 8.4 fL 7.4-10.4 Gran # 5.1 x10^3/UL 1.5-7.2 Lymph# 1.5 x10^3/UL 0.7-4.9 [place]# 0.3 x10^3/UL 0.1-0.9 Gran % 72.6 % 42.2-75.2 Lymph % 22.6 % 20.5-51.1 [place]% 4.8 % 1.7-9.3 Laboratory test finding 01/09/2015 Hemoglobin A1c (Fma/CMC,CX) 6.5 % High 4.1-5.7 Ua - Non Micro (Fma) 01/02/2015 Appearance CLEAR Color YELLOW Glucose, Urine (Fma/CMC/CTX) - Bilirubin - Ketones TRACE SP Grav >=1.030 Blood - PH 5.5 Protein - Urobil 0.2 Nitrite - Leukocytes (a/[facility] [place]/[facility]) - Ua - Non Micro ([facility]) 01/01/2014 Appearance clear Color yellow Glucose neg Bilirubin neg Ketones neg SP Grav 1.020 Blood neg PH 5.5 Protein neg Urobil 0.2 Nitrite neg Leukocytes (Fma/CMC/[facility]) neg Laboratory test finding 12/28/2013 Calcium,Ionized,Serum 5.2 mg/dL 4.5- 5.6 Basic Metabolic Profile 12/26/2013 Sodium 135 mEq/L 134-149 Potassium 3.8 mEq/L 3.6-5.5 Chloride 96 mEq/L 94-112 Carbon Dioxide 26 mEq/L 21-32 Glucose 121 mg/dL High 70-105 10 BUN 20 mg/dL 6-26 Creatinine 1.0 mg/dL 0.6-1.4 BUN/Creat Ratio 20.0 CALC 8.0-36.0 Calcium 11.3 mg/dL High 8.6-10.2 11 Laboratory test finding 12/26/2013 TSH 2.71 mIU/L 0.50-6.00 Free T4 1.06 ng/dL 0.75-1.54 CBC Electronic ([facility]) 12/26/2013 WBC 7.6 3.6-9.6 RBC 4.89 3.90-5.70 Hemoglobin (Fma/CMC/CTX) 15.4 g/dL 12.1 - 17.2 Hematocrit (Fma/CMC/CTX) 45.0 % 36.1 - 50.3 Platelets 198 10^3/ul 150-400 Lymph% 26.4 % 17.0-48.0 Mixed% 6.3 Neutrophils % 67.3 Mean Corpuscular Vol 92 82.2-97.4 Mean Corpuscular Hemoglobin 31.5 27.6-33.3 Mean Corpuscular Hemo Concen 34.2 32.0-36.0 RDW 13.5 11.6-13.7 Mean Platelet Volume 8.7 5.5-11.0 Laboratory test finding 12/26/2013 Sed Rate (a/CMC/[facility]) 11mm Basic Metabolic Profile 09/25/2013 BUN 19 mg/dL 6-26 Calcium 10.2 mg/dL 8.6-10.2 Chloride 95 mEq/L 94-112 Creatinine 0.9 mg/dL 0.6-1.4 Carbon Dioxide 28 mEq/L 21-32 Glucose 102 mg/dL 70-105 Sodium 137 mEq/L 134-149 Potassium 3.7 mEq/L 3.6-5.5 BUN/Creat Ratio 20.9 Calc 8.0-36.0 Lipid Profile 02/06/2013 Cholesterol 132 mg/dL 120-200 HDL 36 mg/dL 30-70 Triglycerides 98 mg/dL 30-200 HDL Risk Factor 3.7 CALC 0.0-4.4 LDL (Calculated) 77 CALC 0-129 VLDL (Calculated) 20 mg/dL 0-50 Laboratory test finding 02/06/2013 Hemoglobin A1c 5.8 % High 4.1-5.7 (a/[facility] [place],CX) Comprehensive Metabolic 02/06/2013 Albumin 5.0 g/dL 3.8-5.5 Prof Alk. Phos. 77 U/L 22-95 Alt (SGPT) 41 U/L High 10-40 12 Ast (Sgot) 30 U/L 5-34 BUN 22 mg/dL 6-26 Calcium 9.9 mg/dL 8.6-10.2 Chloride 100 mEq/L 94-112 Creatinine 0.9 mg/dL 0.6-1.4 Carbon Dioxide 25 mEq/L 21-32 Glucose 131 mg/dL High 70-105 13 Sodium 141 mEq/L 134-149 Total Bilirubin 0.4 mg/dL 0.2-1.3 Total Protein 7.2 g/dL 6.3-8.1 Potassium 4.2 mEq/L 3.6-5.5 Globulin 2.2 g/dL 2.0-4.8 A/G Ratio 2.3 Calc 0.6-2.3 BUN/Creat Ratio 23.3 Calc 8.0-36.0 Ua - Non Micro ([facility]) 12/25/2012 Appearance CLEAR Color YELLOW Glucose NEG Bilirubin NEG Ketones NEG SP Grav 1.020 Blood NEG PH 6.0 Protein NEG Urobil 1.0 Nitrite NEG Leukocytes ([facility] [place]/[facility]) NEG Laboratory test finding 11/03/2012 Hemoglobin A1c 6.1% % High 4.1-5.7 (Fma/CMC,CX) Comprehensive Metabolic 11/03/2012 Albumin 5.5 g/dL 3.8-5.5 Prof Alk. Phos. 100 U/L High 22-95 14 Alt (SGPT) 35 U/L 10-40 Ast (Sgot) 26 U/L 5-34 BUN 21 mg/dL 6-26 Calcium 10.2 mg/dL 8.6-10.2 Chloride 101 mEq/L 94-112 Creatinine 1.0 mg/dL 0.6-1.4 Carbon Dioxide 25 mEq/L 21-32 Glucose 129 mg/dL High 70-105 15 Sodium 137 mEq/L 134-149 Total Bilirubin 0.5 mg/dL 0.2-1.3 Total Protein 8.1 g/dL 6.3-8.1 Potassium 4.4 mEq/L 3.6-5.5 Globulin 2.6 g/dL 2.0-4.8 A/G Ratio 2.1 Calc 0.6-2.3 BUN/Creat Ratio 21.5 Calc 8.0-36.0 Lipid Profile 11/03/2012 Cholesterol 238 mg/dL High 120-200 HDL 34 mg/dL 30-70 Triglycerides 219 mg/dL High 30-200 HDL Risk Factor 7.0 CALC High 0.0-4.4 LDL (Calculated) 160 CALC High 0-129 VLDL (Calculated) 44 mg/dL 0-50 Laboratory test finding 08/09/2012 Hemoglobin A1c (a/[facility] [place],CX) 6.9% % High 4.1-5.7 Glucose, Serum (Fma/CMC/CTX) 175 mg/dL High 70-105 Surgical Pathology 12/28/2011 Surgical Pathology <SEE 16 NOTE> Lipid Profile 12/08/2011 Cholesterol 198 mg/dL 120-200 HDL 37 mg/dL 30-70 Triglycerides 241 mg/dL High 30-200 HDL Risk Factor 5.3 CALC High 0.0-4.0 LDL (Calculated) 112 CALC 0-129 VLDL (Calculated) 48 mg/dL 0-50 Laboratory test finding 12/08/2011 PSA 0.50 ng/mL 0.00-4.00 Ua - Non Micro (Fma) 12/08/2011 Appearance clear Color yellow Glucose, Urine (Fma/CMC/CTX) neg Bilirubin neg Ketones trace SP Grav 1.025 Blood neg PH 6.0 Protein neg Urobil 0.2 Nitrite neg Leukocytes (Fma/CMC/[facility]) neg Comprehensive Metabolic Prof 12/08/2011 Albumin 4.9 g/dL 3.8-5.5 Alk. Phos. 85 U/L 22-95 Alt (SGPT) 42 U/L High 10-40 17 Ast (Sgot) 25 U/L 5-34 BUN 13 mg/dL 6-26 Calcium 10.1 mg/dL 8.6-10.2 Chloride 106 mEq/L 94-112 Creatinine 0.9 mg/dL 0.6-1.4 Carbon Dioxide 31 mEq/L 21-32 Glucose 177 mg/dL High 70-105 18 Sodium 136 mEq/L 134-149 Total Bilirubin 0.5 mg/dL 0.2-1.3 Total Protein 7.6 g/dL 6.3-8.1 Potassium 4.1 mEq/L 3.6-5.5 Globulin 2.7 g/dL 2.0-4.8 A/G Ratio 1.8 Calc 0.6-2.2 BUN/Creat Ratio 14.1 Calc 8.0-36.0 Laboratory test finding 11/16/2011 Antinuclear Abs, Ifa Negative 19, 20 CRP (High Sensitivity) 10.75 mg/L High 0.00-3.00 19, 21 RPR NON-REACTIVE Non-Reactive 19 Rheumatoid Arth Factor 8.3 IU/mL 0.0-13.9 19 Anca 11/16/2011 Cytoplasmic (C-Anca) <1:20 titer Neg:<1:20 19 Perinuclear (P-Anca) <1:20 titer Neg:<1:20 19, 22 Atypical pANCA <1:20 titer Neg:<1:20 19, 23 Laboratory test 11/16/2011 Sed Rate (Fma/CMC/[facility]) 23 mm finding Laboratory test 11/01/2011 TSH 2.90 mIU/L 0.50-6.00 finding Lyme Igg/M W/RFX 11/01/2011 Lyme IgG/IgM Ab <0.91 index 0.00-0.90 24 West Lyme Disease Ab, Quant, IgM <0.91 index 0.00-0.90 25 Ua - Non Micro (Fma) 10/30/2010 Appearance CLEAR Color YELLOW Glucose, Urine (Fma/CMC/CTX) NEG Bilirubin NEG Ketones NEG SP Grav 1.020 Blood NEG PH 5.5 Protein NEG Urobil 0.2 Nitrite NEG Leukocytes (a/CMC/[facility]) NEG Comprehensive Metabolic Prof 10/30/2010 Albumin 5.2 g/dL 3.8-5.5 Alk. Phos. 80 U/L 22-95 Alt (SGPT) 40 U/L 10-40 Ast (Sgot) 31 U/L 5-34 BUN 16 mg/dL 6-26 Calcium 10.1 mg/dL 8.6-10.2 Chloride 102 mEq/L 94-112 Creatinine 1.0 mg/dL 0.6-1.4 Carbon Dioxide 29 mEq/L 21-32 Glucose 105 mg/dL 70-105 Sodium 137 mEq/L 134-149 Total Bilirubin 0.4 mg/dL 0.2-1.3 Total Protein 7.8 g/dL 6.3-8.1 Potassium 4.6 mEq/L 3.6-5.5 Globulin 2.6 g/dL 2.0-4.8 A/G Ratio 2.0 Calc 0.6-2.2 BUN/Creat Ratio 15.2 Calc 8.0-36.0 Lipid Profile 10/30/2010 Cholesterol 195 mg/dL 120-200 HDL 37 mg/dL 30-70 Triglycerides 176 mg/dL 30-200 HDL Risk Factor 5.3 CALC 4.2-7.0 LDL (Calculated) 123 CALC 0-129 VLDL (Calculated) 35 mg/dL 0-50 Laboratory test finding 10/30/2010 PSA 0.50 ng/mL 0.00-4.00 CBC ([facility]) 10/30/2010 WBC 9.7 High 3.6-9.6 RBC 4.98 3.90-5.70 Hemoglobin (Fma/CMC/CTX) 16.0 g/dL 12.1 - 17.2 Hematocrit (Fma/CMC/CTX) 45.6 % 36.1 - 50.3 Platelets 214 10^3/ul 150-400 Lymph% 22.9 20.5-51.1 Mixed% 4.0 Neutrophils % 73.1 Mean Corpuscular Vol 91.6 82.2-97.4 Mean Corpuscular Hemoglobin 32.1 27.6-33.3 Mean Corpuscular Hemo Concen 35.1 32.0-36.0 RDW 12.9 11.6-13.7 Mean Platelet Volume 12.2 High 6.5-11.0 Laboratory test 10/05/2010 Vitamin D, 25 Oh 29.4 ng/mL Low 32.0-100.0 26 finding Surgical Pathology 08/27/2010 Surgical Pathology 27 <SEE NOTE> Laboratory test 08/27/2010 Clotest NEGATIVE finding Laboratory test 08/20/2010 Hemoglobin A1c 6.1 % High 4.1-5.7 finding (Fma/CMC,CX) Comprehensive 08/20/2010 Albumin 4.6 g/dL 3.8-5.5 Metabolic Prof AlkNikhil Phos. 78 U/L 22-95 Alt (SGPT) 40 U/L 10-40 Ast (Sgot) 28 U/L 5-34 BUN 17 mg/dL 6-26 Calcium 10.1 mg/dL 8.6-10.2 Chloride 99 mEq/L 94-112 Creatinine 0.7 mg/dL 0.6-1.4 Carbon Dioxide 23 mEq/L 21-32 Glucose 112 mg/dL High 70-105 Sodium 140 mEq/L 134-149 Total Bilirubin 0.4 mg/dL 0.2-1.3 Total Protein 7.5 g/dL 6.3-8.1 Potassium 3.8 mEq/L 3.6-5.5 Globulin 2.9 g/dL 2.0-4.8 A/G Ratio 1.6 Calc 0.6-2.2 BUN/Creat Ratio 23.2 Calc 8.0-36.0 Complete Blood Count 01/20/2009 WBC 6.2 x10^3/uL 3.6-9.6 Gran# 4.4 x10^3/uL 1.5-7.2 Gran% 70.9 % 42.2-75.2 HCT 41 % 36-50 HGB 14.1 g/dL 12.1-17.2 Lymph# 1.5 x10^3/uL 0.7-4.9 Lymph% 24.5 % 20.5-51.1 MCH 31.3 pg 27.6-33.3 MCV 89.8 fL 82.2-97.4 MCHC 34.9 g/dL 33.0-35.5 Mo# 0.3 x10^3/uL 0.1-0.9 Mo% 4.6 % 1.7-9.3 MPV 9.2 fL 7.4-10.4 PLT 200 x10^3/uL 150-400 RBC 4.51 x10^6/uL 3.90-5.70 RDW 12.3 % 11.6-13.7 Comprehensive Metabolic Prof 01/20/2009 Albumin 4.7 g/dL 3.8-5.5 Alk. Phos. 100 U/L High 22-95 28 Alt (SGPT) 40 U/L 10-40 Ast (Sgot) 33 U/L 5-34 BUN 19 mg/dL 6-26 Calcium 9.3 mg/dL 8.6-10.2 Chloride 101 mEq/L 94-112 Creatinine 1.1 mg/dL 0.6-1.4 Carbon Dioxide 31 mEq/L 21-32 Glucose 125 mg/dL High 70-105 Sodium 139 mEq/L 134-149 Total Bilirubin 0.5 mg/dL 0.2-1.3 Total Protein 7.3 g/dL 6.3-8.1 Potassium 3.7 mEq/L 3.6-5.5 Globulin 2.6 g/dL 2.0-4.8 A/G Ratio 1.8 Calc 0.6-2.2 BUN/Creat Ratio 18.2 Calc 8.0-36.0 Lipid Profile 01/20/2009 Cholesterol 158 mg/dL 120-200 HDL 33 mg/dL 30-70 Triglycerides 179 mg/dL 30-200 HDL Risk Factor 4.8 CALC 4.2-7.0 LDL (Calculated) 90 CALC 0-129 VLDL (Calculated) 36 mg/dL 0-50 Laboratory test finding 01/20/2009 PSA 0.30 ng/mL 0.00-4.00 Ua - Micro (Fma) 01/20/2009 Appearance CLEAR Color YELLOW Glucose NEG Bilirubin NEG Ketones NEG SP Grav 1.020 Blood NEG PH 5.5 Protein NEG Urobil 0.2 Nitrite NEG Leukocytes ([facility]ma/[facility] [place]/[facility]) NEG CBC With Electronic Diff 03/27/2008 White Blood Count 5.9 CUMM 4.8-10.8 29 Red Cell Count 4.27 CUMM Low 4.6-6.2 29 Hemoglobin 13.4 g/dL Low 14.0-18.0 29 Hematocrit 38 % Low 42-52 29 Mean Corpuscular Volume 88 um3 80-94 29 Mean Corpuscular Hemoglob 31 pg 27-31 29 Mean Corpuscular HGB Cone 36 g/dL 32-36 29 Redcell Distribution WDTH 13 % 10.5-15 29 Platelet Count 230 CUMM 150-450 29 Mean Platelet Volume 9.6 um3 7.4-10.4 29 Gran % 58.7 % 38-83 29 Lymph % 28.9 % 20-45 29 Mononuclear % 9.3 % High 1-9 29 Eosinophil % 2.7 % 0-6 29 Basophil % 0.4 % 0-2 29 Abs Lymphs 1.7 1.0-4.8 29 Abs Mononuclear 0.6 0-0.8 29 Absolute Neutrophil Count 3.5 1.5-7.7 29 Abs Eosinophils 0.2 0-0.6 29 Abs Basophils 0 0-0.2 29 Protime 03/27/2008 Protime 11.7 10.9-13.3 29 Inr 0.93 29, 30 Laboratory test finding 03/27/2008 PTT (Aptt) 24.3 20.1-28.2 29, 31 Basic Metabolic Panel 03/27/2008 Sodium 137 mmol/L 135-145 29 Potassium 3.7 mmol/L 3.5-5.0 29 Chloride 103 mmol/L 101-111 29 Co2 (Carbon Dioxide) 28.0 mmol/L 22-32 29 Anion Gap 6.0 mmol/L 2-11 29, 32 Glucose 114 mg/dL High 70-105 29 BUN 17 mg/dL 6-24 29 Creatinine 1.1 mg/dL 0.5-1.4 29 One Over Creatinine 0.90 29 BUN/Creatinine Ratio 15.5 8-20 29 Calcium 9.2 mg/dL 8.1-9.9 29, 33 Type And Screen 03/27/2008 Patient Blood Type A POSITIVE 29 Antibody Screen NEGATIVE 29 Specimen Discard Date 04/10/08 29, 34 Comp Metabolic (Fma) 10/29/2005 Glucose, Serum 118 mg/dL High 70-105 Male (Fma/CMC/CTX) BUN (Fma/CMC/[facility]) 17 mg/dL 6-26 Creatinine (Fma/CMC/CTX) 1.0 mg/dL 0.6-1.4 BUN/Creatinin Ratio 17.8 8.0-36 Sodium 143 134-149 Potassium 4.2 3.6-5.5 Chloride 100 mEq/L 94-112 Co2 29 21-32 Calcium (a/[facility] [place]/[facility]) 10.3 mg/dL High 8.6-10.2 35 Total Protein 7.6 g/dL 6.3-8.1 Albumin ([facility] [place]) 4.9 3.8-5.5 Globulin 2.7 2.0-4.8 A/G Ratio (a/[facility] [place]/[facility]) 1.8 0.6-2.2 Alk Phos (a) Male 80 U/L 22-95 Alt-M SGPT Male ([facility]) 37 10-40 Ast Sgot 30 U/L 5-34 Bilirubin, Total 0.6 mg/dL 0.2-1.3 Lipid Profile([facility]) Male 10/29/2005 Cholesterol 196 mg/dL 120-200 Triglyceride 208 mg/dL High 30-200 HDL Cholesterol ([facility]) Male 45 mg/dL 30-70 LDL, Calculated ([facility] [place]) 110 CALC 0-129 LDL Direct (/[facility] [place]/[facility]) - mg/dL 0-130 VLDL 42 0-50 HDL Risk Factor ([facility]) 4.4 CALC 4.2-7.0 Free T4/TSH 10/29/2005 TSH ([facility] [place]/[facility]) 2.78 uIU/ml 0.5-6.0 ([facility] [place]/[facility]) Free T4 ([facility] [place]/[facility]) 1.26 ng/dL 0.75-1.54 CBC Electronic ([facility]) 10/29/2005 WBC 6.4 3.6-9.6 Lymphocytes 27.7 % 20.5 - 51.1 Monocytes 7.0 % 1.7-9.3 Granulocytes 65.3 % 42.2 - 75.2 Lymphocytes 1.8 10^3/uL 0.7 - 4.9 Monocytes 0.4 10^3/uL 0.1 - 0.9 Granulocytes 4.2 10^3/uL 1.5 - 7.2 RBC 4.79 3.90-5.70 Hemoglobin (a/CMC/CTX) 15.3 g/dL 12.1 - 17.2 Hematocrit (a/CMC/CTX) 43.8 % 36.1 - 50.3 Mean Corpuscular Vol 91.3 82.2-97.4 Mean Corpuscular Hemaglobin 31.9 27.6-33.3 Mean Corpuscular Hemo Concen 35.0 33.0-36.0 RDW 12.4 11.6-13.7 Platelets 200. 10^3/ul 150-400 Mean Platelet Volume 8.8 7.4-10.4 Laboratory test 10/29/2005 Brain Esme. Peptide(BNP) 6.1 pg/mL 0.0-100.0 36, 37 finding Basic Metabolic ([facility]) 11/18/2004 Glucose, Serum 92 mg/dL 70-118 (a/CMC/CTX) BUN (a/CMC/[facility]) 14 mg/dL 6-26 Creatinine (Fma/CMC/CTX) 1.1 mg/dL 0.6-1.4 BUN/Creatinin Ratio 12.5 8.0-36 Sodium 143 134-149 Potassium 4.3 3.6-5.5 Chloride 99 mEq/L 94-112 Co2 30 21-32 Calcium (Fma/CMC/[facility]) 10.2 mg/dL 8.6-10.2 Basic Metabolic ([facility]) 11/18/2003 Glucose, Serum (a/CMC/CTX) 106 mg/dL 70-118 BUN (Fma/CMC/[facility]) 21 mg/dL 6-26 Creatinine (Fma/CMC/CTX) 1.0 mg/dL 0.6-1.4 BUN/Creatinin Ratio 20.0 8.0-36 Sodium 140 134-149 Potassium 4.6 3.6-5.5 Chloride 106 mEq/L 94-112 Co2 29 21-32 Calcium (Fma/CMC/[facility]) 9.9 mg/dL 8.6-10.0 CBC Electronic ([facility]) 11/18/2003 WBC 8.2 3.6-9.6 Lymphocytes 24.0 % 20.5 - 51.1 Monocytes 3.6 % 1.7-9.3 Granulocytes 72.4 % 42.2 - 75.2 Lymphocytes 2.0 10^3/uL 0.7 - 4.9 Monocytes 0.3 10^3/uL 0.1 - 0.9 Granulocytes 5.9 10^3/uL 1.5 - 7.2 RBC 5.16 3.90-5.70 Hemoglobin (Fma/CMC/CTX) 15.5 g/dL 12.1 - 17.2 Hematocrit (Fma/CMC/CTX) 47.2 % 36.1 - 50.3 Mean Corpuscular Vol 91.3 82.2-97.4 Mean Corpuscular Hemaglobin 30.0 27.6-33.3 Mean Corpuscular Hemo Concen 32.9 Low 33.0-35.5 RDW 12.6 11.6-13.7 Platelets 226 10^3/ul 150-400 Mean Platelet Volume 8.6 7.4-10.4 Laboratory test finding 11/18/2003 Sed Rate (a/CMC/Centrex) 22MM Ua - Micro ([facility]) 02/09/2002 Appearance CLEAR YELLOW Glucose - Bilirubin - Ketones TRACE SP Grav >=1.030 Blood - PH 5.0 Protein - Urobil 0.2 Nitrite - Leukocytes - Hyaline - /Lpf Granular - /Lpf WBC'S 0-1 RBC'S 0-1 Mucus - /Lpf Epith - Bacteria - Amorphous - /Lpf Crystals - /Lpf Comments - Comp Metabolic ([facility]) 02/09/2002 Albumin 4.1 3.8-5.5 Alkaline Phosphatase 63 U/L 36-117 Bilirubin, Total 0.2 mg/dL 0.2-1.3 BUN 12 7-26 Calcium 9.3 mg/dL 8.6-10.0 Creatinine 0.8 mg/dL 0.6-1.4 Glucose 111 mg/dL 70 - 118 Ast Sgot 20 U/L 5-40 Alt (SGPT) 34 10-40 Total Protein 6.9 g/dL 6.4-8.3 Sodium 144 134-149 Potassium 4.1 3.6-5.5 Chloride 107 mEq/L 94-112 Co2 26 21-32 Globulin 2.8 2.0-4.8 Albumin / Globulin Ratio 1.5 0.6-2.2 BUN/Creatinin Ratio 15.0 8.0-36 CBC With Diff ([facility]) 02/09/2002 WBC 10.2 High 3.6-9.6 Lymphocytes 13.1 % Low 20.5 - 51.1 Monocytes 5.8 % 1.7-9.3 Granulocytes 81.1 % High 42.2 - 75.2 Lymphocytes 1.3 10^3/uL 0.7 - 4.9 Monocytes 0.6 10^3/uL 0.1 - 0.9 Granulocytes 8.3 10^3/uL High 1.5 - 7.2 RBC 4.70 3.90-5.70 Hemoglobin 14.7 g/dL 12.1 - 17.2 Hematocrit 42.4 % 36.1 - 50.3 Mean Corpuscular Vol 90.3 82.2-97.4 Mean Corpuscular Hemaglobin 31.3 27.6-33.3 Mean Corpuscular Hemo Concen 34.6 33.0-34.8 RDW 12.6 11.6-13.7 Platelets 239 10^3/ul 150-400 Mean Platelet Volume 8.3 7.4-10.4 Laboratory test finding 02/09/2002 Sed Rate 29MM Throat Culture NEGATIVE Lyme Igg/M W/Reflx West 02/06/2002 Lyme Igm Abs see below Lyme Igg Abs " Lyme Total Immunoglobs. NEGATIVE 0.00 - 0.90 38 Lyme Disease Igm NEGATIVE 0.00 - 0.79 39 Laboratory test finding 01/29/2002 Aso 133.0 0 - 200 Rheumatoid Factor (RF) <11.0 IU/mL 0 - 20 Antinuclear AB (Ofe) 01/29/2002 Final Ofe Report NEGATIVE Titer - Fma-CBC With Manual Dif 06/12/2001 WBC 6.2 3.6-9.6 RBC 4.90 3.90-5.70 Hemoglobin 16.3 g/dL 12.1 - 17.2 Hematocrit 43.1 % 36.1 - 50.3 Mean Corpuscular Vol 88.0 82.2-97.4 Mean Corpuscular Hemaglobin - 27.6-33.3 Mean Corpuscular Hemo Concen - 31-36 RDW 12.1 11.6-13.7 Platelets 153 10^3/ul 150-400 Mean Platelet Volume 8.2 7.4-10.4 Neutrophils 69 Band 10 Lymph From [facility] [place] 15 Monocytes 3 % Eosinophils 1 Basophils - Metamyelocytes - Myelocytes - Promyelocyte - Blast - Atypical Lymph - NRBC - Morphology NORMAL Comments - Lipid Profile ([facility]ma) 03/09/2000 Cholesterol 184 mg/dL 140-200 Triglyceride 194 mg/dL High 30-150 HDL-Chol 34.4 mg/dL 30-70 VLDL 39 mg/dL 0-50 LDL-Calculated 111 0-160 Laboratory test finding 03/09/2000 Glucose 101 mg/dL 70 - 118 1 1 sst 2 Negative <0.91 Equivocal 0.91 - 1.09 Positive >1.09 3 Negative <0.80 Equivocal 0.80 - 1.19 Positive >1.19 IgM levels may peak at 3-6 weeks post infection, then gradually decline. 4 2 sst 5 Negative: < 0.8 Indeterminate: 0.8 - 0.9 Positive: > 0.9 The CDC recommends that a positive HCV antibody result be followed up with a HCV Nucleic Acid Amplification test (351668). 6 consistent w/ previous results 7 consistent w/ previous results 8 RESULTS VERIFIED BY REPEAT ANALYSIS 9 RESULTS VERIFIED BY REPEAT ANALYSIS 10 RESULTS VERIFIED BY REPEAT ANALYSIS 11 RESULTS VERIFIED BY REPEAT ANALYSIS 12 RESULT HI'D 13 RESULT HI'D 14 result hi'd 15 result hi'd 16 ---- RUN DATE: 12/31/11 [facility] NMI LIVE PAGE 1 RUN TIME: 1102 Specimen Inquiry RUN USER: INTERFACE -- Name: WALE MCELROY Status: REG REF Re12/28/11 Age/Sex: 56/M Unit#: [id number] Location: [facility] : 53 -- Specimen: [id number] ISABELLA Spec Date:12/28/11 Dr: Med sánchez MD Spec Type: SURGICAL P Received:12/29/11 Copies to: Kanu George MD SPECIMEN 1) BIOPSY CECAL POLYP 2) BIOPSY COLON POLYP AT 15 CM. HISTORY POST-OP DIAGNOSIS: Colonoscopy to cecum. Two polyps - biopsy. CLINICAL INFORMATION: Screening. GROSS DESCRIPTION 1) The specimen is received in formalin labelled Wale Mcelroy, Biopsy Cecal Polyp, and consists of a royal soft tissue fragment measuring 0.3 x 0.3 x 0.2 cm. Submitted entirely, one cassette. 2) The specimen is received in formalin labelled Wale Mcelroy, Biopsy Colon Polyp at 15 cm., and consists of multiple royal soft tissue fragments measuring 0.8 x 0.2 x 0.2 cm. Submitted entirely, one cassette. DIAGNOSIS 1) Colon, cecum, biopsy: Hyperplastic polyp. 2) Colon, 15 cm., biopsy: Hyperplastic polyp. Signed Electronically by: GABRIELLA ZHANG 12/31/11 1102 -- -- DEPARTMENT OF PATHOLOGY, [address] [place] [address] [facility] Permit #[id number] Mahad Gage M.D. Director Gabriella Zhang M.D. Banquet Server On Call Dir stephen -- 17 RESULT HI'D 18 RESULT HI'D 19 3 sst's 20 Negative <1:80 Borderline 1:80 Positive >1:80 21 . hs-CRP Result (mg/L) Risk Level <1.0 Low 1.0-3.0 Average >3.0 High Patients with persistently unexplained, marked elevation of hs-CRP (greater than 10 mg/L) after repeated testing should be evaluated for non-cardiovascular etiologies. . 22 The presence of positive fluorescence exhibiting P-ANCA or C-ANCA patterns alone is not specific for the diagnosis of Chloe's Granulomatosis (WG) or microscopic polyangiitis. Decisions about treatment should not be used solely on ANCA IFA results. The International ANCA Group Consensus recommends follow up testing of positive sera with both MI-3 and MPO-ANCA enzyme immunoassays. As many as 5% serum samples are positive only by EIA. Ref. AM J Clin Pathol 1999;111:507-513. 23 The atypical pANCA pattern has been observed in a significant percentage of patients with ulcerative colitis, primary sclerosing cholangitis and autoimmune hepatitis. 24 Negative <0.91 Equivocal 0.91 - 1.09 Positive >1.09 Note: The CDC currently advises that Western blot testing be performed following all equivocal or positive EIA results. Final diagnosis should include appropriate clinical findings and a positive EIA which is also positive by Western blot. 25 Negative <0.91 Equivocal 0.91 - 1.09 Positive >1.09 . Note: IgM levels may peak at 3-6 weeks post infection, then gradually decline. FDA currently advises that Western Blot testing be performed following all equivocal or positive EIA results. Final diagnosis should include appropriate clinical findings and a positive EIA which is also positive by Western Blot. 26 Recent studies consider the lower limit of 32.0 ng/mL to be a threshold for optimal health. Rohit MOORE. J Nutr. 2005 Nov;135(2):317-22. 27 ---- RUN DATE: 08/28/10 [facility] NMI LIVE PAGE 1 RUN TIME: 1608 Specimen Inquiry RUN USER: INTERFACE -- Name: WALE MCELROY Status: REG REF Re08/27/10 Age/Sex: 54/M Unit#: [id number] Location: END : 53 -- Specimen: [id number] SOUT Spec Date: 08/27/[address]: Med moody MD Spec Type: SURGICAL P Received: 08/27/10-1044 Copies to: Andreina gaona MD SPECIMEN BIOPSY GASTRIC POLYP HISTORY POST-OP DIAGNOSIS: Gastric polyps. Gastritis. Esophagus normal, duodenum normal CLINICAL INFORMATION: Gastroesophageal reflux disease. GROSS DESCRIPTION The specimen is received in formalin labelled Wale Mcelroy, Biopsy Gastric Polyp, and consists of a fragment of yellow tissue measuring 0.3 x 0.2 x 0.2 cm. Submitted entirely, one cassette. DIAGNOSIS Stomach, polyp, biopsy: Fundic gland type polyp. Signed Electronically by: GABRIELLA ZHANG 08/28/10 1608 -- -- DEPARTMENT OF PATHOLOGY, [address] [place] [address] [facility] Permit #[id number] Mahad Gage M.D. Director Gabriella Zhang M.D. Banquet Server On Call Dir stephen -- 28 RESULT HI'D 29 SDS 03/29/08 30 KATHIA VALUE=2.01 ( OF 09/22/07 Recommended INR for Patients on Oral Anticoagulants Prophylaxis 2.0 - 3.0 Treatment of thrombosis 2.0 - 3.0 Prevention of embolism 2.0 - 3.0 Prevention of embolism from prosthetic heart valves 2.5 - 3.5 31 PLEASE NOTE NEW REFERENCE RANGE EFFECTIVE 08. 32 Anion gap measurement may be of limited value in the presence of any alkalosis, especially in a combined acid base disorder. . 33 Please note change in reference range effective 08 . 34 PREADMISSION TESTING SAMPLES FOR BLOOD BANK WILL BE HELD FOR 14 DAYS FROM THE DATE OF COLLECTION *IF* THE FOLLOWING CRITERIA ARE MET: 1) THE PATIENT HAS *NOT* BEEN IN THE LAST 3 MONTHS. 2) THE PATIENT HAS *NOT* BEEN TRANSFUSED IN THE LAST 3 MONTHS. PREADMISSION TESTING SAMPLES WILL *NOT* BE HELD FOR 14 DAYS FROM PATIENTS WHO IN THE LAST 3 MONTHS: 1) HAVE BEEN 2) HAVE BEEN TRANSFUSED THESE PATIENTS *MUST* BE COLLECTED WITHIN 3 DAYS OF THE SURGERY DATE. 35 RESULT VERIFIED BY REPEAT ANALYSIS 36 FROZEN PLASMA 37 . Abnormal BNP values are associated with increased mortality and are independent of age, Troponin-I and the presence or absence of heart failure, renal insufficiency and ST segment deviation. The adjusted odds ratios for at 10 months at a median of 40 hours after the onset of ischemic symptoms are: Quartile Plasma BNP (pg/ml) Odds ratio Q-1 5.0 to 43.6 Reference group Q-2 43.7 to 81.2 3.8 (95% C.I., 1.1 to 3.0) Q-3 81.3 to 137.8 4.0 (95% C.I., 1.2 to 13.7) Q-4 137.9 to 1456.6 8.8 (95% C.I., 1.7 to 19.7) BNP is also associated with the risk of recurrent or new myocardial infarction, and/or new or worsening congestive heart failure. N. Engl. J. Med., 2001; 345:1014-21 38 Note: The CDC currently advises Negative <or=0.90 that Western blot testing be Equivocal 0.91 -1.09 performed following all equiv- Positive >or=1.10 ocal or positive EIA results. Final diagnosis should include appropriate clinical findings and a positive EIA which is also positive by Western blot. . 39 Note: IgM levels may peak Equivocal 0.80 - 1.19 at 3-6 weeks post infec- Positive >=1.20 tion, then gradually decline. FDA currently advises that Western blot testing be per- formed following all equivocal or positive EIA results. Final diagnosis should include appro- priate clinical findings and a positive EIA which is also pos- itive by Western blot. ACC: [id number] PID: [id number] Procedures Date CPT Code Description Status Comment 06/24/2017 88686 Finger Or Heel Stick Completed 12/21/2016 27829 Vision Test- screening test of visual Completed acuity, quantitative, bila 12/22/2015 06426 Vision Test- screening test of visual Completed acuity, quantitative, bila 07/08/2015 56339 Finger Or Heel Stick Completed 01/02/2015 07962 Vision Test- screening test of visual Completed acuity, quantitative, bila 01/16/2014 78246 Electrocardiogram Complete Completed 01/01/2014 55336 Vision Test- screening test of visual Completed acuity, quantitative, bila 12/26/2013 58124 Electrocardiogram Complete Completed 09/25/2013 76616 Electrocardiogram Complete Completed 12/25/2012 77454 Vision Test- screening test of visual Completed acuity, quantitative, bila 08/09/2012 23944 Finger Or Heel Stick Completed 12/16/2011 Colonoscopy Completed repeat 10 years 12/08/2011 94577 Vision Test- screening test of visual Completed acuity, quantitative, bila 04/15/2003 62887 Inject Tendon/Ligament/Cyst Completed 07/31/2002 90924 Electrocardiogram Interpretation & Completed Report Only 11/07/2001 04501 Anoscopy Diagnostic Completed Encounters Type Date Location Provider CPT E/M Dx Office Visit 06/24/2017 10:20a Main Office Kanu George M.D. 81505 Z00.00 G45.9 E11.65 I10 Z23 Office Visit 04/04/2017 10:00a Main Office Kanu George M.D. 39698 I69.811 R51 G45.9 Office Visit 03/18/2017 2:00p Main Office Kanu George M.D. 96411 R51 Office Visit 03/15/2017 1:45p Main Office Alanna BrewerMajo velazquez-C 32420 Z11.59 J01.80 E78.5 E11.65 R51 Office Visit 07/05/2016 11:00a Main Office Kanu George M.D. 92230 M54.5 Office Visit 04/24/2016 9:30a Main Office Kanu George M.D. 63864 M54.5 Office Visit 12/22/2015 11:00a Main Office Alanna BrewerMajo velazquez-C 38104 Z02.4 M54.89 Office Visit 12/02/2015 10:15a Main Office Alanna Brewercaroline Jaquelinmaida-C 17720 M54.89 Office Visit 07/08/2015 10:20a [facility] Kanu George M.D. 28077 250.02 v04.81 401.1 272.4 327.23 V70.0 Office Visit 02/08/2015 10:50a Main Office Edwin Aldridge M.D. 94711 465.9 709.9 401.1 Office Visit 01/02/2015 8:00a [facility] Farzaneh SorianoMAIDA 48819 V70.3 401.1 250.02 327.23 726.19 272.4 V72.0 530.81 Office Visit 09/23/2014 9:20a Main Office Kanu George M.D. 21858 v04.81 726.19 719.43 250.02 427.31 401.1 V72.83 Office Visit 01/16/2014 9:40a Main Office Kanu George M.D. 70875 719.44 427.31 250.02 Office Visit 01/01/2014 11:30a Main Office Celi Little, SET DECORATOR 80863 V70.3 V72.0 Office Visit 12/26/2013 1:10p Main Office Kanu George M.D. 49986 785.1 780.79 530.81 Office Visit 11/19/2013 9:20a Main Office Kanu George M.D. 29413 719.44 v04.81 Office Visit 09/25/2013 11:20a [facility] Kanu George M.D. 68255 250.02 727.03 V72.83 Office Visit 05/11/2013 4:20p [facility] Office Kanu George M.D. 35480 873.40 E819.3 Office Visit 05/08/2013 9:10a [facility] Kanu George M.D. 19147 873.40 E819.3 Office Visit 02/06/2013 9:20a [facility] Kanu George M.D. 11840 250.02 Office Visit 12/25/2012 6:15p Main Office Farzaneh Soriano MAIDA 43305 V70.3 V72.0 Office Visit 11/03/2012 8:00a [facility] Office Lara Howell, Afnp-C 41115 250.02 V04.81 Office Visit 09/01/2012 9:00a [facility] Office Lara Howell, Afnp-C 79972 250.02 Office Visit 08/18/2012 3:00p [facility] Lara Howell, Afnp-C 15626 250.02 Office Visit 08/09/2012 10:30a [facility] Office Lara Howell, Afnp-C 15950 787.91 790.6 Office Visit 12/08/2011 8:10a Main Office Kanu George M.D. 54198 V70.0 V76.44 V72.0 Office Visit 11/01/2011 1:40p Main Office Lorean Baez M.D. 28232 719.46 780.79 Office Visit 10/27/2011 4:20p Main Office Wendy Ayala M.D. 40089 682.0 719.46 Office Visit 10/04/2011 11:30a Main Office Gladys Lux, [facility] 61938 461.9 Office Visit 06/19/2011 9:30a Main Office Wendy Ayala M.D. 37962 682.0 Office Visit 03/16/2011 10:40a Main Office Celi Hernandez M.D. 29342 380.13 Office Visit 10/30/2010 3:20p Main Office Kanu George M.D. 60486 V06.5 V70.0 Office Visit 10/05/2010 6:40p Main Office Andreina Parr M.D. 08509 682.0 268.9 Office Visit 08/20/2010 11:20a [facility] Andreina Parr M.D. 47025 530.81 401.9 790.6 Office Visit 07/24/2010 2:40p [facility] Celi Hernandez, 47377 388.70 M.D. Office Visit 07/18/2010 10:45a Main Office Lara Howell Afnp-C 67255 682.0 Office Visit 07/09/2010 2:00p [facility] Office Gladys Lux, [facility] 82889 682.0 Office Visit 12/15/2009 11:30a Main Office Alanna Baer, Afnp-C 87332 486 465.9 Office Visit 10/01/2009 10:30a Main Office Lara Howell Afnp-C 64305 380.10 682.0 Office Visit 09/26/2009 9:45a [facility] Office Lara Howell Afnp-C 03646 380.10 682.0 Office Visit 08/01/2009 11:20a [facility] Office Celi Hernandez, 55770 724.2 M.D. 724.3 Office Visit 07/24/2009 4:30p [facility] Office Celi Hernandez, 87504 724.3 M.D. 724.2 Office Visit 01/20/2009 10:20a Main Office Kanu George M.D. 90711 789.00 V70.0 V76.44 Office Visit 03/27/2008 11:20a Main Office Kanu George M.D. 96231 401.1 723.4 V72.83 Office Visit 03/12/2008 1:10p [facility] Office Kanu George M.D. 44078 724.5 Office Visit 02/27/2008 9:20a [facility] Office Kanu George M.D. 37130 724.5 Office Visit 02/19/2008 7:45p Main Office Gladys Lux [facility] 12810 848.9 Office Visit 11/03/2007 11:00a Main Office Gladys Lux [facility] 68566 461.9 780.57 Office Visit 07/11/2007 9:45a [facility] Office Majo HumphriesNaheed 95697 381.81 388.70 Office Visit 01/18/2007 8:00p Main Office Kanu George M.D. 15764 461.9 724.5 Office Visit 07/06/2006 7:40p Main Office Gerald Keyes M.D. 74228 380.10 Office Visit 10/29/2005 9:40a [facility] Office Kanu George M.D. 80676 780.79 429.2 V77.91 V77.0 Office Visit 09/22/2005 5:20p Main Office Kanu George M.D. 58763 701.9 Office Visit 07/30/2005 2:45p Main Office ANNE Johnson 20549 461.9 Office Visit 03/29/2005 11:20a Main Office Kanu George M.D. 50488 455.0 Office Visit 01/18/2005 8:10a Main Office Kanu George M.D. 99977 401.9 473.9 Office Visit 11/18/2004 5:00p Main Office Kanu George M.D. 21165 401.9 Office Visit 10/28/2004 3:00p Main Office Kanu George M.D. 82104 401.9 Office Visit 10/07/2004 1:20p Main Office Kanu George M.D. 17971 401.9 Office Visit 09/16/2004 11:20a Main Office Kanu George M.D. 38312 401.9 530.81 Office Visit 07/20/2004 7:45p Main Office Gladys Iyerr, [facility] 52698 530.81 473.9 Office Visit 05/27/2004 2:15p Main Office Gladys Germainrer, [facility] 79689 473.9 Office Visit 11/27/2003 1:20p Main Office Edwin Aldridge M.D. 03452 461.0 Office Visit 11/18/2003 3:10p Main Office Edwin Aldridge M.D. 06730 682.0 780.79 Office Visit 11/15/2003 3:00p [facility] Office Lara Howell Afnp-C 83582 682.0 Office Visit 07/22/2003 10:15a [facility] Office Gladys Germainrer, [facility] 38734 686.9 Office Visit 06/25/2003 11:00a [facility] Office Alanna Baer Afnp-C 35237 692.9 Office Visit 11/02/2002 9:10a Main Office Kanu George M.D. 67317 786.50 Office Visit 08/06/2002 11:40a Main Office Kanu George M.D. 71983 786.50 Office Visit 02/09/2002 3:10p [facility] Office Kanu George M.D. 18362 Office Visit 01/29/2002 11:00a Main Office Parveen Plascencia M.D. 16507 Office Visit 11/07/2001 4:20p [facility] Office Kanu George M.D. 46726 Office Visit 09/21/2001 6:20p Main Office Avila Peralta M.D. 31006 Office Visit 07/26/2001 2:00p [facility] Office Edwin Aldridge M.D. 61853 Office Visit 06/12/2001 11:10a Main Office Edwin Aldridge M.D. 56159 Office Visit 06/09/2001 4:20p Main Office Mahad Crump M.D. 56127 Office Visit 04/24/2001 3:00p [facility] Office Mahad Crump M.D. 98150 Plan of Care 12/05/2017 - Alanna Brewercaroline, Majo-CZ02.4 Encounter for examination for driving licenseFollow up:Followup:. (Follow up)E11.65 Type 2 diabetes mellitus with hyperglycemiaFollow up:Followup:. (Follow up)AllNew Medication:Aspirin Ec 325 mgComments:~B_~U_Medication Management~b_~u_ Patient Understands medications he's taking? Yes No Are there Barriers to Adherence? Yes No Has the patient been asked about herbal supplements and therapies, and OTC meds? Yes No ~B_~U_Care Plan~b_~u_1. Patient has been queried about patient's goals/preferences and functional/lifestyle goals at relevant visits. If relevant, describe: na2. Treatment goals as explained to the patient: aboveroutine health maintenance and disease prevention 3. Are there barriers to meeting treatment goals? Yes No If Yes, please describe:4. Self-Management goals as described to the patient: Yes No continue dietary efforts your aic continues at 5.2%I will clear you for a 1 year dot cert 2nd to htn and sleep apnea .
[2017-12-25] MEDS ORDERED: Tetan/Diph/Pertus SYR(Tdap)* 0.5 ML SYR(BOOSTRIX) use SYR IM ONE (20:41)
[2017-12-25] MEDS ORDERED: Lidocaine 1%* 5 ML VIAL ONE ×2 (20:54→21:27)
[2017-12-25] MEDS ORDERED: Lidocaine 1%* 5 ML VIAL INJ ONE ×2 (20:59→21:28)
[2017-12-25] MEDS ORDERED: Morphine INJ* 4 MG/ML 1 ML SYRINGE (NEW SYRINGE VERSION) IV ONE (21:01)
[2017-12-25] MEDS ORDERED: Clindamycin 600 MG IVPREMIX(* 600 MG/50 ML SDV IV ONE (21:01)
[2017-12-25] MEDS ORDERED: Ondansetron INJ* 2 MG/ML VIAL IV ONE (21:02)
--- NOTE | 2017-12-25 21:08 | RAD ---
HISTORY: Left hand injury, laceration COMPARISONS: November 19, 2013 VIEWS: 4, Frontal, lateral, and oblique views of the left hand FINDINGS: BONE DENSITY: Normal. BONES: There has been amputation of the tuft of the distal phalanx of the second digit of the left hand. There is a nondisplaced fracture through the tuft of the distal phalanx of the third digit of the left hand. JOINTS: There is no arthropathy. ALIGNMENT: There is no dislocation. SOFT TISSUES: There is soft tissue irregularity of the distal second and third digits consistent with the history of laceration. OTHER FINDINGS: None. IMPRESSION: 1. AMPUTATION OF THE TUFT OF THE DISTAL PHALANX OF THE SECOND DIGIT. 2. NONDISPLACED FRACTURE THROUGH THE TUFT OF THE DISTAL PHALANX OF THE THIRD DIGIT
--- NOTE | 2017-12-25 21:15 | ED ---
Laceration/Wound HPI - HPI Summary HPI Summary: 62M presents with left hand laceration today. He states he index and middle finger got caught in a cycle specialist machine when working with wood. He has avulsion of nail of index and middle finger. His last tetanus was 5 years ago. penicillin caused a serum sickness and airway issues. He is not diabetic. He has a history of HTN. has avulsion of nail of index and partial avulsion of nail of middle finger. 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 He is right handed. area continues to bleed. he states is in 10 out of 10 pain and area continues to throb. He states it feels better when his hand is over his head. - History of Current Complaint Stated Complaint: FINGER LAC INDEX AND MIDDLE Time Seen by Provider: 12/25/17 20:21 Pain Intensity: 0 - Allergy/Home Medications Allergies/Adverse Reactions: Allergies Allergy/AdvReac Type Severity Reaction Status Date / Time Cillins Allergy Severe See Comment Uncoded 04/08/17 11:33 SEASONAL HAYFEVER Allergy Sneezing, Uncoded 04/08/17 11:33 RUNNY NOSE PMH/Surg Hx/FS Hx/Imm Hx Endocrine/Hematology History: Reports: Hx Diabetes - TYPE II- ON ORAL MEDICATION FOR Denies: Hx Thyroid Disease Cardiovascular History: Reports: Hx Coronary Artery Disease - CHOLESTEROL CONTROL WITH MEDS, Hx Hypertension - ON MEDICATION FOR, Other Cardiovascular Problems/Disorders - HX OF "HEART RACING A COUPLE OF TIMES A DAY Denies: Hx Angina, Hx Pacemaker/ICD Respiratory History: Reports: Hx Asthma, Hx Sleep Apnea Denies: Hx Chronic Obstructive Pulmonary Disease (COPD), Other Respiratory Problems/Disorders - DENIES GI History: Reports: Hx Gastroesophageal Reflux Disease - ON SELMA Denies: Hx Ulcer, Other GI Disorders History: Denies: Hx Renal Disease Musculoskeletal History: Reports: Hx Arthritis - HANDS, ANKLES Sensory History: Reports: Hx Contacts or Glasses - READING GLASSES Denies: Hx Hearing Aid Opthamlomology History: Reports: Hx Contacts or Glasses - READING GLASSES Neurological History: Denies: Other Neuro Impairments/Disorders Psychiatric History: Denies: Hx Panic Disorder - Surgical History Surgery Procedure, Year, and Place: 1998 LEFT LEG RECONSTRUCTION COMPOUND FX, C- 5 C-6 fused, [facility] C-7 OPENING ENLARGED, [facility]-RIGHT KNEE ARTHROSCOPIC SURGERY. [facility]-. LEFT ANKLE SCREWS AND PLATES PLACED AND REMOVED, BIG FLATS-. RIGHT THUMB X 2 [place] & [facility] (SCREWS ARE STILL IN PLACE)2013. LEFT SHOULDER SURGERY, [facility]; -Lt WRIST & FOREARM - OCT 2014-[facility] Hx Anesthesia Reactions: Yes - "HAS A SMALLER AIRWAY" - Immunization History Date of Tetanus Vaccine: 6 MOS. AGO ? Infectious Disease History: No Infectious Disease History: Denies: Hx Hepatitis, Hx Human Immunodeficiency Virus (HIV), Traveled Outside the [place] in Last 30 Days - Family History Known Family History: Positive: Hypertension, Diabetes - Social History Alcohol Use: Rare Alcohol Amount: 1-2 PER MONTH Substance Use Type: Reports: None Smoking Status (MU): Never Smoked Tobacco Have You Smoked in the Last Year: No Review of Systems Negative: Fever Negative: Chest Pain Negative: Shortness Of Breath Positive: Other - avulsions of index and middle finger right All Other Systems Reviewed And Are Negative: Yes Physical Exam Triage Information Reviewed: Yes Vital Signs On Initial Exam: Initial Vitals Temp Pulse Resp BP Pulse Ox 98.6 F 83 20 155/91 97 12/25/17 20:06 12/25/17 20:06 12/25/17 20:06 12/25/17 20:06 12/25/17 20:06 Vital Signs Reviewed: Yes Appearance: Positive: Pain Distress Skin: Positive: Warm, Dry, Other - 4cm by 1cm skin flap with no nail at distal phlanax of right index finger. 1cm by 2cm avulsion of nail of right middle finger Head/Face: Positive: Normal Head/Face Inspection Eyes: Positive: Normal, Conjunctiva Clear Respiratory/Lung Sounds: Positive: Clear to Auscultation, Breath Sounds Present Cardiovascular: Positive: Normal, RRR Musculoskeletal: Positive: Normal Neurological: Positive: Normal Psychiatric: Positive: Normal Procedures - Laceration/Wound Repair 1 Location: Other - right index finger Description: Irregular Anesthesia: Digital, 1.0% Length, Depth and Shape: 3cm by 1cm flap at distal tip of right index finger Betadine Prep?: Yes Irrigated w/ Saline (ccs): 1,000 Laceration/Wound Explored: no foreign body removed Closure: Single Layer Suture Type: Prolene Number of Sutures: 4 Diagnostics - Vital Signs Vital Signs Temp Pulse Resp BP Pulse Ox 12/25/17 21:11 16 12/25/17 20:06 98.6 F 83 20 155/91 97 - Laboratory Lab Statement: Any lab studies that have been ordered have been reviewed, and results considered in the medical decision making process. - Radiology finger Xray Interpretation: Positive (See Comments) - IMPRESSION: 1. AMPUTATION OF THE TUFT OF THE DISTAL PHALANX OF THE SECOND DIGIT. 2. NONDISPLACED FRACTURE THROUGH THE TUFT OF THE DISTAL PHALANX OF THE THIRD DIGIT Radiology Interpretation Completed By: Radiologist Laceration Repair Course/Dx - Course Course Of Treatment: 62M presents with left hand laceration today. He states he index and middle finger got caught in a cycle specialist machine when working with wood. He has avulsion of nail of index and middle finger. His last tetanus was 5 years ago. penicillin caused a serum sickness and airway issues. He is not diabetic. He has a history of HTN. has avulsion of nail of index and partial avulsion of nail of middle finger. 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 He is right handed. area continues to bleed. he states is in 10 out of 10 pain and area continues to throb. He states it feels better when his hand is over his head. on exam has avulsion of entire nail of middle finger. has just skin left on index finger. discussed with dr nick said to bring flap of skin to create a end of index finger. dr nick examined middle finger and states does not appear to be any bone exposed so placed pressure dressing on area. After extensive cleaning placed 4 sutures to close the tip of right index finger. gave tetanus. Will place on [place] due to penicillin allergy. Spoke with dr odom will have follow-up with orthopedist tomorrow. Patient understands and agrees with plan. - Differential Dx Differental Diagnoses: Avulsion, Fracture, Laceration - Clinical Impression Provider Diagnoses: amputation of tuft index finger, avulsion of right middle finger Discharge - Discharge Plan Condition: Good Disposition: HOME Prescriptions: Clindamycin Cap(NF) [Clindamycin Cap 300 mg Cap(NF)] 300 mg PO TID #29 cap oxyCODONE/Acetamin 5/325 MG* [Percocet 5/325 TAB*] 1 tab PO Q6H PRN #20 tab MDD 4 PRN Reason: Pain Patient Education Materials: Finger Fracture (ED), Skin Avulsion (ED) Referrals: Kanu George MD [Primary Care Provider] - Naye Moya MD [Medical Doctor] - Additional Instructions: Call office tomorrow to follow up with dr moya Take clindamycin three times a day for 10 days Take pain medication every 6 hours as needed for pain Change dressing once a day Return to ED if develop any signs of infection or any new or worsening symptoms
[2017-12-25 22:39] VITALS: BP 143/76
== END 2017-12-25 22:40 | disposition home or self-care (01) ==
LOC: ED 20:01
DX: S68.120A Partial traumatic metacarpophalangeal amputation of right index finger, initial encounter (principal); S61.312A Laceration without foreign body of right middle finger with damage to nail, initial encounter; W31.89XA Contact with other specified machinery, initial encounter; Y92.9 Unspecified place or not applicable; Z23 Encounter for immunization; I10 Essential (primary) hypertension; E11.9 Type 2 diabetes mellitus without complications; Z79.84 Long term (current) use of oral hypoglycemic drugs; E78.00 Pure hypercholesterolemia, unspecified; K21.9 Gastro-esophageal reflux disease without esophagitis; Z79.899 Other long term (current) drug therapy
CPT/HCPCS: 12002; 90471; 90715; 96365; 96375; 99282; J2270; J2405